=== PATIENT | female | born 1985 | race African-American/Black ===

== ENCOUNTER 2019-12-29 11:15 | Emergency (ER) | payer SELFPAY ==
--- NOTE | 2019-12-29 12:40 | RAD REPORT ---
EXAM DESCRIPTION: RAD - Chest Pa And Lat (2 Views) - 12/29/2019 12:28 pm CLINICAL HISTORY: Cough;Congestion Chest pain. COMPARISON: No comparisons FINDINGS: The lungs are clear. The heart is normal in size. No displaced fractures. IMPRESSION: No acute or concerning finding suspected.
--- NOTE | 2019-12-29 12:53 | EDPHYS ---
Physician Documentation [facility] Name: Shital Woodson Age: 34 yrs Sex: Female : 1985 Arrival Date: 12/29/2019 Time: 11:17 Bed 20 Private MD: ED Physician Jordan Lerner HPI: 12/29 13:24 This 34 yrs old Black Female presents to ER via Ambulatory with complaints of Flu kb Symptoms. 13:24 The patient or guardian reports cough, that is intermittent, described as moderate, kb with no sputum, flu symptoms, low-grade fever, myalgias. Onset: The symptoms/episode began/occurred 3 day(s) ago. Severity of symptoms: At their worst the symptoms were moderate, in the emergency department the symptoms are unchanged. Modifying factors: The symptoms are alleviated by nothing, the symptoms are aggravated by nothing. Associated signs and symptoms: Pertinent positives: rhinorrhea, sore throat. The patient has not experienced similar symptoms in the past. The patient has not recently seen a physician. Pt reports cough, congestion, runny nose, malaise, body aches, fatigue for a few days. 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 - Coronavirus screen:: The patient has NOT traveled to [place] in the past 14 days. The patient has NOT had contact with known/suspected case of Coronavirus? Proceed with normal triage procedures. - Social history:: Smoking status: Patient reports the use of cigarette tobacco products, smokes one-half pack cigarettes per day. - Ebola Screening: : No symptoms or risks identified at this time. ROS: 13:23 Neck: Negative for injury, pain, and swelling, Cardiovascular: Negative for chest pain, kb palpitations, and edema, Abdomen/GI: Negative for abdominal pain, nausea, vomiting, diarrhea, and constipation, Back: Negative for injury and pain, MS/Extremity: Negative for injury and deformity, Skin: Negative for injury, rash, and discoloration, Neuro: Negative for headache, weakness, numbness, tingling, and seizure. 13:23 Constitutional: Positive for body aches, chills, fatigue, fever, malaise, poor PO intake. 13:23 ENT: Positive for rhinorrhea, sinus congestion, sore throat. 13:23 Respiratory: Positive for cough. Exam: 13:22 Constitutional: This is a well developed, well nourished patient who is awake, alert, kb and in no acute distress. Head/Face: Normocephalic, atraumatic. Neck: Trachea midline, no thyromegaly or masses palpated, and no cervical lymphadenopathy. Supple, full range of motion without nuchal rigidity, or vertebral point tenderness. No Meningismus. Chest/axilla: Normal chest wall appearance and motion. Nontender with no deformity. No lesions are appreciated. Cardiovascular: Regular rate and rhythm with a normal S1 and S2. No gallops, murmurs, or rubs. Normal PMI, no JVD. No pulse deficits. Respiratory: Lungs have equal breath sounds bilaterally, clear to auscultation and percussion. No rales, rhonchi or wheezes noted. No increased work of breathing, no retractions or nasal flaring. Abdomen/GI: Soft, non-tender, with normal bowel sounds. No distension or tympany. No guarding or rebound. No evidence of tenderness throughout. Skin: Warm, dry with normal turgor. Normal color with no rashes, no lesions, and no evidence of cellulitis. MS/ Extremity: Pulses equal, no cyanosis. Neurovascular intact. Full, normal range of motion. Neuro: Awake and alert, GCS 15, oriented to person, place, time, and situation. Cranial nerves II-XII grossly intact. Motor strength 5/5 in all extremities. Sensory grossly intact. Cerebellar exam normal. Normal gait. 13:22 ENT: External ear(s): are unremarkable, Ear canal(s): are normal, TM's: fluid levels, on the right, Nose: is normal, Mouth: is normal, Posterior pharynx: is normal. Vital Signs: 11:32 BP 136 / 102; Pulse 92; Resp 18; Temp 97.4; Pulse Ox 100% on R/A; Weight 81.65 kg; hb Height 5 ft. (152.40 cm); Pain 10/10; 11:32 Body Mass Index 35.15 (81.65 kg, 152.40 cm) MDM: 12:05 Patient medically screened. kb 13:23 Data reviewed: vital signs, nurses notes. Data reviewed: lab test result(s), radiologic kb studies. Data interpreted: Pulse oximetry: on room air is 100 %. Interpretation: normal. Counseling: I had a detailed discussion with the patient and/or guardian regarding: the historical points, exam findings, and any diagnostic results supporting the discharge/admit diagnosis, lab results, radiology results, the need for outpatient follow up, a family practitioner, to return to the emergency department if symptoms worsen or persist or if there are any questions or concerns that arise at home. 12/29 11:35 Order name: Flu; Complete Time: 12:05 12/29 11:35 Order name: Strep; Complete Time: 12: 12/29 11:59 Order name: Throat Culture [facility] 12/29 12:05 Order name: Chest Pa And Lat (2 Views) XRAY kb Administered Medications: No medications were administered Disposition: 16:27 Co-signature as Attending Physician, Jordan Lerner MD I agree with the assessment and kdr plan of care. Disposition: 12/29/19 12:51 Discharged to Home. Impression: Acute upper respiratory infection, unspecified. - Condition is Stable. - Discharge Instructions: Upper Respiratory Infection, Adult, [id number], Viral Respiratory Infection, [id number]. - Work release form, Medication Reconciliation Form, Thank You Letter, Antibiotic Education, Prescription Opioid Use form. - Follow up: Emergency Department; When: As needed; Reason: Worsening of condition. Follow up: Private Physician; When: 2 - 3 days; Reason: Recheck today's complaints, Continuance of care, Re-evaluation by your physician. Signatures: Dispatcher [employer] EDWY Itzel Almanza, WORKERS COMPENSATION ATTORNEY-C WORKERS COMPENSATION ATTORNEY-Jordan Camara MD MD [facility] Dianne Greenfield, PUALO RN Ben Gan RN RN jl7 Corrections: (The following items were deleted from the chart) 13:03 12:51 12/29/2019 12:51 Discharged to Home. Impression: Acute upper respiratory jl7 infection, unspecified. Condition is Stable. Forms are Medication Reconciliation Form, Thank You Letter, Antibiotic Education, Prescription Opioid Use. Follow up: Emergency Department; When: As needed; Reason: Worsening of condition. Follow up: Private Physician; When: 2 - 3 days; Reason: Recheck today's complaints, Continuance of care, Re-evaluation by your physician. kb
--- NOTE | 2019-12-29 12:53 | ER ---
Nurse's Notes [facility] Name: Shital Woodson Age: 34 yrs Sex: Female : 1985 Arrival Date: 12/29/2019 Time: 11:17 Bed 20 Private MD: Diagnosis: Acute upper respiratory infection, unspecified Presentation: 12/29 11:30 Presenting complaint: SOB, nonproductive cough, pain with cough, fever, sore throat, hb body aches, and N/V/D x 3 days. Not tolerating fluids. TMAX 101. Transition of care: patient was not received from another setting of care. Onset of symptoms was December 26, 2019. Risk Assessment: Do you want to hurt yourself or someone else? Patient reports no desire to harm self or others. Care prior to arrival: None. 11:30 Method Of Arrival: Ambulatory hb 11:30 Acuity: CATIE 3 hb 13:03 Initial Sepsis Screen: Does the patient meet any 2 criteria? No. Patient's initial jl7 sepsis screen is negative. Does the patient have a suspected source of infection? No. Patient's initial sepsis screen is negative. 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 - Coronavirus screen:: The patient has NOT traveled to [place] in the past 14 days. The patient has NOT had contact with known/suspected case of Coronavirus? Proceed with normal triage procedures. - Social history:: Smoking status: Patient reports the use of cigarette tobacco products, smokes one-half pack cigarettes per day. - Ebola Screening: : No symptoms or risks identified at this time. Screenin:10 Abuse screen: Denies threats or abuse. Denies injuries from another. Nutritional jl7 screening: No deficits noted. Tuberculosis screening: No symptoms or risk factors identified. Fall Risk None identified. Assessment: 12:10 General: Appears in no apparent distress. uncomfortable, well groomed, well developed, jl7 Behavior is calm, cooperative. Pain: Complains of pain in sore throat. Neuro: Level of Consciousness is awake, alert, obeys commands, Oriented to person, place, time, situation. Cardiovascular: Patient's skin is warm and dry. Respiratory: Airway is patent Respiratory effort is even, unlabored, Respiratory pattern is regular, symmetrical. Derm: Skin is pink, warm \T\ dry. Vital Signs: 11:32 BP 136 / 102; Pulse 92; Resp 18; Temp 97.4; Pulse Ox 100% on R/A; Weight 81.65 kg; hb Height 5 ft. (152.40 cm); Pain 10/10; 11:32 Body Mass Index 35.15 (81.65 kg, 152.40 cm) hb ED Course: 11:17 Patient arrived in ED. rg4 11:32 Triage completed. hb 11:32 Arm band placed on. hb 12:00 Flu and/or RSV swab sent to lab. Strep swab sent to lab. jl7 12:04 Itzel Almanza FNP-C is [facility]. kb 12:04 Jordan Lerner MD is Attending Physician. kb 12:10 Patient has correct armband on for positive identification. Bed in low position. Call jl7 light in reach. Side rails up X 1. 12:20 Ben Gan, PAULO is Primary Nurse. jl7 12:27 Chest Pa And Lat (2 Views) XRAY In Process Unspecified. EDMS 13:02 No provider procedures requiring assistance completed. Patient did not have IV access jl7 during this emergency room visit. Administered Medications: No medications were administered Outcome: 12:51 Discharge ordered by MD. kb 13:02 Discharged to home ambulatory. jl7 13:02 Condition: stable 13:02 Discharge instructions given to patient, Instructed on discharge instructions, follow up and referral plans. Demonstrated understanding of instructions, follow-up care. 13:03 Patient left the ED. jl7 Signatures: Dispatcher [employer] EDMS Itzel Almanza FNP-C FNP-Ckb Baxter, Heather, RN RN Diamond Nguyen rg4 Ben Gan, PAULO RN jl7 Corrections: (The following items were deleted from the chart) 11:33 11:32 BP 136 / 102; Pulse 92bpm; Resp 20bpm; Pulse Ox 100% RA; Temp 97.4F; 81.65 kg; hb Height 5 ft.; BMI: 35.1; Pain 10/10; hb
[2019-12-29 13:32] VITALS: BP 136/102; TEMP 97.4; O2SAT 100
== END 2019-12-29 13:03 | disposition home or self-care (01) ==
LOC: ER 11:15
DX: J06.9 Acute upper respiratory infection, unspecified (principal); F17.210 Nicotine dependence, cigarettes, uncomplicated
CPT/HCPCS: 71046; 87070; 87081; 87804; 99283

== ENCOUNTER 2020-05-09 09:11 | Emergency (ER) | payer SELFPAY ==
[2020-05-09] MEDS ORDERED: HYDROCODONE/APAP 5/325 MG TAB ONE (09:29)
--- NOTE | 2020-05-09 10:06 | RAD REPORT ---
EXAM DESCRIPTION: RAD - Ankle Right 3 View - 05/09/2020 9:43 am COMPARISON: None. FINDINGS: No fracture, dislocation or periosteal reaction. No joint effusion seen. No joint space na rrowing. Minimal plantar spur present. Lateral soft tissue swelling is present. IMPRESSION: Soft tissue swelling with no right ankle fracture.
--- NOTE | 2020-05-09 10:06 | RAD REPORT ---
EXAM DESCRIPTION: RAD - Foot Right 3 View - 05/09/2020 9:43 am CLINICAL HISTORY: PAIN, twisting injury, foot and ankle pain COMPARISON: <Comparisons>None. FINDINGS: No fracture, dislocation or periosteal reaction. No acute bone or joint finding identified . Lateral soft tissue swelling is present. No air or foreign body in the soft tissues. IMPRESSION: Lateral soft tissue swelling. No foot fracture identifiable.
--- NOTE | 2020-05-09 10:58 | ER ---
Nurse's Notes [facility] Name: Shital Woodson Age: 35 yrs Sex: Female : 1985 Arrival Date: 05/09/2020 Time: 09:11 Bed 8 Private MD: Diagnosis: Sprain of unspecified ligament of right ankle Presentation: 05/09 09:12 Chief complaint: Patient states: pt tripped while walking and twisted right ankle. Pain dm5 rated at 10/10 at this time. No deformity noted. Coronavirus screen: Proceed with normal triage. Patient denies a cough. Patient denies shortness of breath or difficulty breathing. Patient denies measured and/or subjective temperature greater than 100.4F prior to today's visit. Patient reports travel on a cruise ship or to a country the [facility] currently lists as an affected area. Patient denies contact with known and/or suspected case of COVID-19. Ebola Screen: Patient negative for fever greater than or equal to 101.5 degrees Fahrenheit, and additional compatible Ebola Virus Disease symptoms Patient denies exposure to infectious person. Patient denies travel to an Ebola-affected area in the 21 days before illness onset. No symptoms or risks identified at this time. Initial Sepsis Screen: Does the patient meet any 2 criteria? No. Patient's initial sepsis screen is negative. Does the patient have a suspected source of infection? No. Patient's initial sepsis screen is negative. Risk Assessment: Do you want to hurt yourself or someone else? Patient reports no desire to harm self or others. Onset of symptoms was May 09, 2020. 09:12 Method Of Arrival: EMS: [facility] dm5 09:12 Acuity: CATIE 4 dm5 Triage Assessment: 09:16 General: Appears uncomfortable, Behavior is calm, cooperative. Pain: Complains of pain dm5 in right ankle and lateral aspect of right foot Pain currently is 10 out of 10 on a pain scale. Neuro: Level of Consciousness is awake, alert, obeys commands, Oriented to person, place, time. Respiratory: Airway is patent Respiratory effort is even, unlabored, relaxed, Respiratory pattern is regular, symmetrical. Musculoskeletal: Swelling present in right ankle. Historical: - Allergies: 09:16 No Known Allergies; dm5 - Home Meds: 09:16 None [Active]; dm5 - PMHx: 09:16 None; dm5 - PSHx: 09:16 None; dm5 - Immunization history:: Adult Immunizations not up to date. - Family history:: not pertinent. - Hospitalizations: : No recent hospitalization is reported. Vital Signs: 09:12 BP 115 / 99; Pulse 84; Resp 18; Temp 98.5; Pulse Ox 100% on R/A; Weight 90.72 kg; dm5 Height 5 ft. 0 in. (152.40 cm); Pain 10; 09:12 Body Mass Index 39.06 (90.72 kg, 152.40 cm) dm5 ED Course: 09:11 Patient arrived in ED. dm5 09:11 Morales Mendez MD is Attending Physician. ma2 09:16 Triage completed. dm5 09:16 Arm band placed on right wrist. Patient placed in an exam room, on a stretcher. dm5 09:17 Brittny Murray, RN is Primary Nurse. dm5 09:48 Ankle Right 3 View XRAY In Process Unspecified. EDMS 09:48 Foot Right 3 View XRAY In Process Unspecified. EDMS Administered Medications: 09:20 Drug: [place] 5 mg-325 mg 1 tabs {Note: RASS restless 1.} Route: PO; dm5 Outcome: 10:58 Discharge ordered by . ma2 11:28 Patient left the ED. sv Signatures: Dispatcher [employer] EDMS Brittny Murray, PAULO BATES Queta Rapp RN RN Morales Mendez MD MD ma2
--- NOTE | 2020-05-09 10:58 | EDPHYS ---
Physician Documentation [facility] Name: Shital Woodson Age: 35 yrs Sex: Female : 1985 Arrival Date: 05/09/2020 Time: 09:11 Bed 8 Private MD: ED Physician Morales Mendez HPI: 05/09 10:56 This 35 yrs old Black Female presents to ER via EMS with complaints of Ankle Injury. ma2 10:56 The patient presents with decreased range of motion, pain. The complaints affect the ma2 right ankle. Onset: The symptoms/episode began/occurred suddenly, 1 hour(s) ago. Associated signs and symptoms: Pertinent negatives: nausea, rash, tingling, vomiting. Severity of symptoms: At their worst the symptoms were moderate, in the emergency department the symptoms are unchanged. The patient has not experienced similar symptoms in the past. Historical: - Allergies: 09:16 No Known Allergies; dm5 - Home Meds: 09:16 None [Active]; dm5 - PMHx: 09:16 None; dm5 - PSHx: 09:16 None; dm5 - Immunization history:: Adult Immunizations not up to date. - Family history:: not pertinent. - Hospitalizations: : No recent hospitalization is reported. ROS: 10:56 Constitutional: Negative for fever, chills, and weight loss. ma2 10:56 All other systems are negative. Exam: 10:56 Constitutional: This is a well developed, well nourished patient who is awake, alert, ma2 and in no acute distress. Chest/axilla: Normal chest wall appearance and motion. Nontender with no deformity. No lesions are appreciated. Cardiovascular: Regular rate and rhythm with a normal S1 and S2. No gallops, murmurs, or rubs. Normal PMI, no JVD. No pulse deficits. Respiratory: Lungs have equal breath sounds bilaterally, clear to auscultation and percussion. No rales, rhonchi or wheezes noted. No increased work of breathing, no retractions or nasal flaring. Abdomen/GI: Soft, non-tender, with normal bowel sounds. No distension or tympany. No guarding or rebound. No evidence of tenderness throughout. Skin: Warm, dry with normal turgor. Normal color with no rashes, no lesions, and no evidence of cellulitis. MS/ Extremity: pain and tenderness over right lateral ankle over deltoid ligament, no hematoma or echymosis, Pulses equal, no cyanosis. Neurovascular intact. Full, normal range of motion. Neuro: Awake and alert, GCS 15, oriented to person, place, time, and situation. Cranial nerves II-XII grossly intact. Motor strength 5/5 in all extremities. Sensory grossly intact. Cerebellar exam normal. Normal gait. Vital Signs: 09:12 BP 115 / 99; Pulse 84; Resp 18; Temp 98.5; Pulse Ox 100% on R/A; Weight 90.72 kg; dm5 Height 5 ft. 0 in. (152.40 cm); Pain 08/14; 09:12 Body Mass Index 39.06 (90.72 kg, 152.40 cm) dm5 MDM: 09:11 Patient medically screened. [facility] 10:56 Differential diagnosis: fracture, sprain, arthritis, gout. Data reviewed: vital signs, mn2 nurses notes. Counseling: I had a detailed discussion with the patient and/or guardian regarding: the historical points, exam findings, and any diagnostic results supporting the discharge/admit diagnosis, the presence of at least one elevated blood pressure reading (>120/80) during this emergency department visit, the need for outpatient follow up. Response to treatment: the patient's symptoms have markedly improved after treatment. 05/09 09:12 Order name: Ankle Right 3 View XRAY; Complete Time: 10:55 [facility] 05/09 09:12 Order name: Foot Right 3 View XRAY; Complete Time: 10:55 [facility] 05/09 10:59 Order name: Crutches [facility] 05/09 10:59 Order name: Post-op Orthopedic Shoe: boot mn2 Administered Medications: 09:20 Drug: [place] 5 mg-325 mg 1 tabs {Note: RASS restless 1.} Route: PO; dm5 Disposition: 05/09/20 10:58 Discharged to Home. Impression: Sprain of unspecified ligament of right ankle. - Condition is Stable. - Discharge Instructions: Ankle Sprain, [id number]. - Prescriptions for Diclofenac Sodium 75 mg Oral Tablet Sustained Release - take 1 tablet by ORAL route 2 times per day; 30 tablet. - Medication Reconciliation Form, Thank You Letter, Antibiotic Education, Prescription Opioid Use form. - Follow up: Private Physician; When: Tomorrow; Reason: Continuance of care. Signatures: Dispatcher [employer] Brittny Rodrigues RN RN Queta Doyle RN RN sv Alzahri, Mohammad, MD MD ma2 Corrections: (The following items were deleted from the chart) 11:28 10:58 05/09/2020 10:58 Discharged to Home. Impression: Sprain of unspecified ligament sv of right ankle. Condition is Stable. Forms are Medication Reconciliation Form, Thank You Letter, Antibiotic Education, Prescription Opioid Use. Follow up: Private Physician; When: Tomorrow; Reason: Continuance of care. ma2
[2020-05-09 11:55] VITALS: BP 115/99; TEMP 98.5; O2SAT 100
== END 2020-05-09 11:28 | disposition home or self-care (01) ==
LOC: ER 09:11
DX: S93.401A Sprain of unspecified ligament of right ankle, initial encounter (principal)
CPT/HCPCS: 99283

== ENCOUNTER 2020-07-17 18:21 | Emergency (ER) | payer SELFPAY ==
[2020-07-17 19:11] LABS: Absolute Lymphocytes (CBC) 1.7 K/uL (0.7-4.9); Basophils % 0.6 % (0-1.3); Hematocrit 36.6 % (36.0-45.0); Lymphocytes % 19.9 % (15.3-44.8); RBC Red Blood Cell Count 5.55 M/uL (3.86-4.86)
[2020-07-17 19:27] LABS: ALT/SGPT 18 U/L (12-78); AST/SGOT 14 U/L (15-37); Albumin 4.4 g/dL (3.4-5.0); Alkaline Phosphatase 87 U/L (45-117); BUN Blood Urea Nitrogen 8 mg/dL (7-18); Bicarbonate 25 mmol/L (21-32); Bilirubin Direct 0.1 mg/dL (0-0.2); Bilirubin Total 0.4 mg/dL (0.2-1.0); Glucose Level 86 mg/dL (74-106); Potassium 3.8 mmol/L (3.5-5.1); Protein, Total 8.4 g/dL (6.4-8.2); Sodium Level 141 mmol/L (136-145)
[2020-07-17 19:46] LABS: Platelet Estimate ADEQ; White Blood Cell Scan OK (OK)
[2020-07-17 19:47] LABS: Blood Morphology Comment NOTED (NOT SEEN); Hypochromasia 1+
[2020-07-17 20:21] LABS: Urine Blood NEGATIVE (NEG); Urine Glucose NEGATIVE (NEG); Urine Protein TRACE (NEG); Urine Specific Gravity >1.030 (1.005-1.030); Urine pH 5.5 (5.0-7.0)
[2020-07-17 20:50] LABS: Barbiturates NEGATIVE (NEGATIVE); Benzodiazepines NEGATIVE (NEGATIVE); Cocaine NEGATIVE (NEGATIVE); METHAMPHETAM NEGATIVE (NEGATIVE); Methadone NEGATIVE (NEGATIVE); Opiates NEGATIVE (NEGATIVE); Phencyclidine NEGATIVE (NEGATIVE); THC Cannibis POSITIVE (NEGATIVE)
--- NOTE | 2020-07-17 23:45 | EDPHYS ---
Physician Documentation [facility] Name: Shital Woodson Age: 35 yrs Sex: Female : 1985 Arrival Date: 07/17/2020 Time: 18:25 Bed 15 Private MD: ED Physician Minor Lerma HPI: 07/17 21:26 This 35 yrs old Black Female presents to ER via EMS with complaints of Psych Problem. kb 21:26 The patient presents to the emergency department with homicidal ideation, the patient kb has harmed or wants to harm a friend. Onset: The symptoms/episode began/occurred 3 day(s) ago. Past psychiatric history: Prior diagnosis: bipolar disorder. Associated signs and symptoms: Pertinent positives; homicidal ideation, Pertinent negatives: suicide ideation. Severity of symptoms: At their worst the symptoms were moderate in the emergency department the symptoms are unchanged. The patient has experienced similar episodes in the past. The patient has not recently seen a physician. Pt reports she has an addiction and needs help. States she is addicted to causing pain to others and she doesn't want to live that life anymore. States she wants to harm one friend in particular so "she can feel the pain that I feel." Pt states the symptoms have been bad for the past 3 days and that she has reached out to [facility], but the appt they gave her was in September and she is worried about what will happen from now until then. Pt states "Sometimes I wish I could just go [place] to the [place], it was so much easier in there." Pt will be a voluntary commitment. . TRIAL CONSULTANT: 21:00 LMP 07/02/2020 ll2 Historical: - Allergies: 18:31 No Known Allergies; ll2 - PMHx: 18:31 ptsd; Bipolar disorder; ll2 - Immunization history:: Adult Immunizations up to date. - Social history:: Smoking status: Patient reports the use of cigarette tobacco products, denies chronic smoking, but will smoke occasionally. ROS: 21:24 Constitutional: Negative for fever, chills, and weight loss, Cardiovascular: Negative kb for chest pain, palpitations, and edema, Respiratory: Negative for shortness of breath, cough, wheezing, and pleuritic chest pain, Abdomen/GI: Negative for abdominal pain, nausea, vomiting, diarrhea, and constipation, Back: Negative for injury and pain, MS/Extremity: Negative for injury and deformity, Skin: Negative for injury, rash, and discoloration, Neuro: Negative for headache, weakness, numbness, tingling, and seizure. 21:24 Psych: Positive for anxiety, homicidal ideation. Exam: 21:24 Constitutional: This is a well developed, well nourished patient who is awake, alert, kb and in no acute distress. Head/Face: Normocephalic, atraumatic. Chest/axilla: Normal chest wall appearance and motion. Nontender with no deformity. No lesions are appreciated. Cardiovascular: Regular rate and rhythm with a normal S1 and S2. No gallops, murmurs, or rubs. Normal PMI, no JVD. No pulse deficits. Respiratory: Lungs have equal breath sounds bilaterally, clear to auscultation and percussion. No rales, rhonchi or wheezes noted. No increased work of breathing, no retractions or nasal flaring. Abdomen/GI: Soft, non-tender, with normal bowel sounds. No distension or tympany. No guarding or rebound. No evidence of tenderness throughout. Back: No spinal tenderness. No costovertebral tenderness. Full range of motion. Skin: Warm, dry with normal turgor. Normal color with no rashes, no lesions, and no evidence of cellulitis. MS/ Extremity: Pulses equal, no cyanosis. Neurovascular intact. Full, normal range of motion. Neuro: Awake and alert, GCS 15, oriented to person, place, time, and situation. Cranial nerves II-XII grossly intact. Motor strength 5/5 in all extremities. Sensory grossly intact. Cerebellar exam normal. Normal gait. 21:24 Psych: Behavior/mood is cooperative, angry, Affect is animated, Oriented to person, place, time, Patient having thoughts of homicide. Homicidal thoughts directed towards one person in particular Judgement / Insight is normal. Memory is normal. Delusions/hallucinations are not present. Vital Signs: 19:03 BP 117 / 97; Pulse 77; Resp 16; Temp 98.7; Pulse Ox 100% on R/A; Weight 81.65 kg; ll2 Height 5 ft. (152.40 cm); 20:03 BP 129 / 84; Pulse 66; Resp 15; Pulse Ox 100% on R/A; ll2 21:02 BP 128 / 73; Pulse 73; Resp 14; Pulse Ox 100% on R/A; ll2 21:47 BP 129 / 85; Pulse 78; Resp 14; Pulse Ox 100% on R/A; ll2 19:03 Body Mass Index 35.15 (81.65 kg, 152.40 cm) ll2 MDM: 18:27 Patient medically screened. 21:23 Data reviewed: vital signs, nurses notes. Data interpreted: Pulse oximetry: on room air kb is 100 %. Interpretation: normal. Counseling: I had a detailed discussion with the patient and/or guardian regarding: the historical points, exam findings, and any diagnostic results supporting the discharge/admit diagnosis, lab results, the need to transfer to another facility, [facility] does not immediately have the required specialist. 21:44 ED course: Pt medically cleared. [facility] contacted for consult and transfer to inpatient psychiatric facilities initiated. 23:36 ED course: Pt decided she wants to leave. Educated that she could not leave because she kb could be a danger to others. Pt states she is 35 years old/grown and we can't force her to stay. Pt educated that we would have to call PD if she tried to leave. Pt states "they can't do anything to me either, I don't have a warrant." Pt informed that I was going to call the mental health deputy to get an emergency fci order. I asked solid waste landfill technician to remove IV so she didn't leave with it in. Tech came out of the room saying pt refused to let him remove the IV. Pt was walking behind him and left the ER. [facility] and [place] [facility] called. Pt has not been able to be located by either service. I spoke with [place] officer and he will make a visit to pt's address to see if she went there. . 07/17 18:40 Order name: Acetaminophen; Complete Time: 19:35 kb 07/17 18:40 Order name: Basic Metabolic Panel; Complete Time: 19:35 kb 07/17 18:40 Order name: CBC with Diff; Complete Time: 19:48 kb 07/17 18:40 Order name: ETOH Level; Complete Time: 19:35 kb 07/17 18:40 Order name: Hepatic Function; Complete Time: 19:35 kb 07/17 18:40 Order name: PT-INR; Complete Time: 19:23 kb 07/17 18:40 Order name: Ptt, Activated; Complete Time: 19:23 kb 07/17 18:40 Order name: Salicylate; Complete Time: 19:41 kb 07/17 18:40 Order name: Urine Drug Screen; Complete Time: 21:23 kb 07/17 19:24 Order name: CBC Smear Scan; Complete Time: 19:48 EDMS 07/17 20:07 Order name: Urine --Ancillary (enter results); Complete Time: 20:26 tt3 07/17 20:07 Order name: Urine Dipstick--Ancillary (enter results); Complete Time: 20:26 tt3 07/17 18:40 Order name: EKG - Nurse/Tech; Complete Time: 19:03 kb 07/17 18:40 Order name: IV Saline Lock; Complete Time: 19:03 kb 07/17 18:40 Order name: Labs collected and sent; Complete Time: 19:03 kb 07/17 18:40 Order name: Urine Dipstick-Ancillary (obtain specimen); Complete Time: 19:03 kb Administered Medications: No medications were administered Disposition: 07/17/20 23:44 Patient left the facility after being seen by provider. Preliminary diagnosis is Homicidal ideations. - Patient left due to other. - Condition is Stable. Addendum: 07/19/2020 10:53 Co-signature as Attending Physician, Minor Lerma MD I agree with the assessment and c gates plan of care. Signatures: Dispatcher [employer] EDOH Itzel Almanza, RN ORTHO-C RN ORTHO-CkBecky Tariq RN RN aj1 Minor Lerma MD MD cha Linscombe, Lacie, RN RN ll2 Corrections: (The following items were deleted from the chart) 07/18 00:00 07/17 23:44 07/17/2020 23:44 Patient left the facility after being seen by provider. aj1 Preliminary diagnosis is Homicidal ideations. Reason stated they are leaving due to other. Condition is Stable. kb
--- NOTE | 2020-07-17 23:45 | ER ---
Nurse's Notes [facility] Name: Shital Woodson Age: 35 yrs Sex: Female : 1985 Arrival Date: 07/17/2020 Time: 18:25 Bed 15 Private MD: Diagnosis: Homicidal ideations Presentation: 07/17 18:26 Chief complaint: EMS states: Pt was homicidal, but not suicidal, she does do things to ll2 inflict pain on herself in order to ease her emotional pain, she has a few superficial lacerations to her right forearm. States, she knows she needs help, was unsure where to get it so asked to be brought here instead. Has been off her meds for 7 months and has a HX of bipolar disorder and ptsd. Coronavirus screen: Client denies travel out of the [place] in the last 14 days. At this time, the client does not indicate any symptoms associated with coronavirus-19. Ebola Screen: No symptoms or risks identified at this time. Initial Sepsis Screen: Does the patient meet any 2 criteria? No. Patient's initial sepsis screen is negative. Does the patient have a suspected source of infection? No. Patient's initial sepsis screen is negative. Risk Assessment: Do you want to hurt yourself or someone else? Other: states she has had these ideas but removed herself from the situation and no longer feels that way. she is seeking help finding the proper care and management of her disorder. Onset of symptoms is unknown. 18:26 Method Of Arrival: EMS: [facility] ll2 18:26 Acuity: CATIE 2 ll2 Triage Assessment: 18:31 General: Appears distressed, Behavior is cooperative, anxious, crying. Pain: Denies ll2 pain. MILLER ROD MILL: 21:00 LMP 07/02/2020 ll2 Historical: - Allergies: 18:31 No Known Allergies; ll2 - PMHx: 18:31 ptsd; Bipolar disorder; ll2 - Immunization history:: Adult Immunizations up to date. - Social history:: Smoking status: Patient reports the use of cigarette tobacco products, denies chronic smoking, but will smoke occasionally. Screenin:32 Abuse screen: Denies threats or abuse. Nutritional screening: No deficits noted. ll2 Tuberculosis screening: No symptoms or risk factors identified. Fall Risk None identified. Assessment: 18:32 Reassessment: see triage assessment. ll2 20:06 General: denies thoughts to harm self or others at this time. pt appears calm and ll2 resting in bed. . 20:22 Reassessment: No changes from previously documented assessment. Patient and/or family ll2 updated on plan of care and expected duration. Pain level reassessed. Patient is alert, oriented x 3, equal unlabored respirations, skin warm/dry/pink. pt is calm, but appears sad. no thoughts od SI at this time. 21:30 Reassessment: ERP to bedside discussing plans to transfer. ll2 22:14 Reassessment: Patient and/or family updated on plan of care and expected duration. Pain aj1 level reassessed. General: Appears in no apparent distress. comfortable, Behavior is calm, cooperative, appropriate for age. Pain: Denies pain. Neuro: Level of Consciousness is awake, alert, obeys commands, Oriented to person, place, time, situation. Cardiovascular: Patient's skin is warm and dry. Respiratory: Airway is patent Respiratory effort is even, unlabored, Respiratory pattern is regular, symmetrical. GI: No signs and/or symptoms were reported involving the gastrointestinal system. : No signs and/or symptoms were reported regarding the genitourinary system. EENT: No signs and/or symptoms were reported regarding the EENT system. Derm: No signs and/or symptoms reported regarding the dermatologic system. Skin is pink, warm \\T\\ dry. normal. Musculoskeletal: No signs and/or symptoms reported regarding the musculoskeletal system. Circulation, motion, and sensation intact. 23:06 Reassessment: Patient states that she would like to leave, notified Brandy Almanza NP who aj1 states she will come and speak with the patient. 23:20 Reassessment: Patient appears agitated and begins walking out of ER. Patient is aj1 approached by staff who remind patient that she cannot leave, patient begins cursing states "Fuck that! Y'all don't want this fire! Don't try me!" Patient exits to the lobby, security notified. 23:22 Reassessment: pt ambulatory out of the ED at this time, IV intact, pt refused for staff sg to safely remove the IV, [place] PD contacted for assistance with homicidal pt leaving the ED. Psych: 20:57 Subjective: Patient's mood is sad, Delusions are denied, Hallucinations are denied ll2 Having thoughts of pt denies having thoughts of SI or HI. Objective: Patient is cooperative, Speech is normal, Affect is appropriate, Patient has mutilated themselves by pt came in through ems with four minor scrapoes on her lt forearm. Interventions: Urine collected and sent for urine drug test. Patient reassessed during use of restraints. Patient is physically safe. Safety Checks: Pt denies substance abuse. Commitment: Patient will be a voluntary commitment. Vital Signs: 19:03 BP 117 / 97; Pulse 77; Resp 16; Temp 98.7; Pulse Ox 100% on R/A; Weight 81.65 kg; ll2 Height 5 ft. (152.40 cm); 20:03 BP 129 / 84; Pulse 66; Resp 15; Pulse Ox 100% on R/A; ll2 21:02 BP 128 / 73; Pulse 73; Resp 14; Pulse Ox 100% on R/A; ll2 21:47 BP 129 / 85; Pulse 78; Resp 14; Pulse Ox 100% on R/A; ll2 19:03 Body Mass Index 35.15 (81.65 kg, 152.40 cm) ll2 ED Course: 18:25 Patient arrived in ED. ll2 18:25 Nimisha Macedo RN is Primary Nurse. ll2 18:27 It[facility]C [facility] kb 18:27 Minor Lerma MD is Attending Physician. kb 18:31 Triage completed. ll2 18:32 Patient has correct armband on for positive identification. Bed in low position. Call ll2 light in reach. Side rails up X 1. 18:32 No provider procedures requiring assistance completed. ll2 20:06 Initial lab(s) drawn, by me, Urine collected: clean catch specimen, clear. ll2 21:32 Contacted [facility] to have a screener speak to the patient. Spoke with Brittany. tt3 21:35 Faxed patient chart to [facility], [facility], [facility], [facility], [facility], [facility], [facility], [facility], [facility], [facility] and [facility]. 22:14 Report received from PAULO Bansal. aj1 22:20 Lin with [facility] called to screen the patient. tt3 23:17 Lin from [facility] faxed over the recommendations. tt3 23:35 Called Mental Health to get an HAYES for the patient. [place] PD was called also. tt3 Was told the Mental health deputy would call back that they were on another call at the time. Administered Medications: No medications were administered Outcome: 07/18 00:00 Eloped from patient exam room. aj1 00:00 Patient left the ED. aj1 Signatures: Itzel Almanza, PATTERN ILLUSTRATOR-C DAWOOD-Becky Willis RN RN aj1 Alexander Gibson RN RN sg Linscombe, Lacie, RN RN ll2 Migue Pedersen tt3 Corrections: (The following items were deleted from the chart) 07/17 23:46 23:35 Called Mental Health to get an HAYES for the patient. [place] PD was called tt3 also. tt3 23:58 23:22 Reassessment: pt ambulatory out of the ED at this time, IV intact, pt refused for sg staff to safely remove the IV, [place] [employer] contacted for assistance with SI/HI pt leaving the ED sg
[2020-07-18 00:37] VITALS: TEMP 98.7; O2SAT 100
[2020-07-18 00:40] VITALS: BP 129/85
== END 2020-07-18 | disposition left against medical advice (07) ==
LOC: ER 18:21
DX: R45.850 Homicidal ideations (principal); F31.9 Bipolar disorder, unspecified; F17.210 Nicotine dependence, cigarettes, uncomplicated
CPT/HCPCS: 36415; 80048; 80076; 80307; 80320; 80329; 81003; 81025; 85025; 85610; 85730; 99284

== ENCOUNTER 2020-08-26 07:01 | Emergency (ER) | payer SELFPAY ==
[2020-08-26] MEDS ORDERED: METHYLPREDNISOLONE 125 MG INJ ONE (07:36)
[2020-08-26] MEDS ORDERED: KETOROLAC 30 MG/ML INJ ONE (07:36)
[2020-08-26] MEDS ORDERED: MORPHINE 4 MG/ML SYR ONE (07:36)
[2020-08-26] MEDS ORDERED: METHOCARBAMOL 1,000 MG/10 ML VIAL IV ONE (07:36)
[2020-08-26] MEDS ORDERED: NA CHLORIDE 0.9% 100 ML IV ONE (07:36)
--- NOTE | 2020-08-26 08:50 | EDPHYS ---
[facility] Name: Shital Woodson Age: 35 yrs Sex: Female : 1985 Arrival Date: 08/26/2020 Time: 07:03 Bed 5 Private MD: ED Physician Jordan Lerner HPI: 08/26 07:31 This 35 yrs old Black Female presents to ER via Ambulatory with complaints of Back Pain.kdr 07:31 The patient presents with pain that is acute. The symptoms are located in the low back, kdr right sciatic area/buttock. Onset: The symptoms/episode began/occurred suddenly, yesterday. The pain radiates to the right low back, to the right gluteus elaine. 07:31 Associated signs and symptoms: The patient has no apparent associated signs or kdr symptoms, Pertinent negatives: constipation, dysuria, hematuria, incontinence, urinary retention, vomiting, weakness. The problem was sustained This is chronic pain and was exacerbated when she got off the couch yesterday. Modifying factors: The patient symptoms are alleviated by nothing, the patient symptoms are aggravated by any movement, standing, walking. Severity of symptoms: At their worst the symptoms were moderate, severe, in the emergency department the symptoms are unchanged. The patient has experienced similar episodes in the past, chronically. The patient has not recently seen a physician. SOCIAL MEDIA COORDINATOR: 07:05 LMP 08/17/2020 aa5 Historical: - Allergies: 07:05 No Known Allergies; aa5 - PMHx: 07:05 Bipolar disorder; PTSD; Back pain; aa5 - PSHx: 07:05 None; aa5 - Immunization history:: Adult Immunizations unknown. - Social history:: Smoking status: Patient reports the use of cigarette tobacco products, smokes one-half pack cigarettes per day. ROS: 07:31 Constitutional: Negative for fever, chills, and weight loss, Eyes: Negative for injury, kdr pain, redness, and discharge, Neck: Negative for injury, pain, and swelling, Cardiovascular: Negative for chest pain, palpitations, and edema, Respiratory: Negative for shortness of breath, cough, wheezing, and pleuritic chest pain, Abdomen/GI: Negative for abdominal pain, nausea, vomiting, diarrhea, and constipation, : Negative for injury, bleeding, discharge, and swelling, MS/Extremity: Negative for injury and deformity, Skin: Negative for injury, rash, and discoloration, Neuro: Negative for headache, weakness, numbness, tingling, and seizure activity. Psych: Negative for depression, anxiety, suicide ideation, homicidal ideation, and hallucinations, Allergy/Immunology: Negative for hives, rash, and allergies, Endocrine: Negative for neck swelling, polydipsia, polyuria, polyphagia, and marked weight changes, Hematologic/Lymphatic: Negative for swollen nodes, abnormal bleeding, and unusual bruising. 07:31 Back: Positive for pain at rest, pain with movement, radiated pain. Exam: 07:31 Constitutional: This is a well developed, well nourished patient who is awake, alert, kdr and in no acute distress. Head/Face: Normocephalic, atraumatic. Chest/axilla: Normal chest wall appearance and motion. Nontender with no deformity. No lesions are appreciated. Respiratory: Lungs have equal breath sounds bilaterally, clear to auscultation and percussion. No rales, rhonchi or wheezes noted. No increased work of breathing, no retractions or nasal flaring. 07:31 Back: pain, that is moderate, that is severe, of the right low back, ROM is painful, normal spinal alignment noted, CVA tenderness, is absent. Vital Signs: 07:08 Weight 86.18 kg (R); Height 5 ft. 0 in. (152.40 cm) (R); Pain 10/10; aa5 07:10 BP 96 / 58; Pulse 74; Resp 15; Temp 97.9; Pulse Ox 100% ; Pain 10/10; jl7 08:45 BP 117 / 62; Pulse 67; Resp 17; Pulse Ox 100% ; jl7 07:08 Body Mass Index 37.11 (86.18 kg, 152.40 cm) aa5 MDM: 07:31 Data reviewed: vital signs, nurses notes. Counseling: I had a detailed discussion with kdr the patient and/or guardian regarding: the historical points, exam findings, and any diagnostic results supporting the discharge/admit diagnosis, the need for outpatient follow up. 08:50 Patient medically screened. kdr 08/26 07:44 Order name: IV Start; Complete Time: :44 [facility] Administered Medications: 07:30 Drug: TORadol - Ketorolac 15 mg Route: IVP; Site: right antecubital; jl7 08:00 Follow up: Response: No adverse reaction; Pain is decreased jl7 07:32 Drug: SOLU-Medrol 125 mg Route: IVP; Site: right antecubital; jl7 08:40 Follow up: Response: No adverse reaction jl7 07:35 Drug: morphine 4 mg Route: IVP; Site: right antecubital; jl7 08:00 Follow up: Response: No adverse reaction; Pain is decreased jl7 07:38 Drug: Robaxin 1 grams Route: IVPB; Infused Over: 1 hrs; Site: right antecubital; jl7 08:08 Follow up: Response: No adverse reaction; IV Status: Completed infusion jl7 Disposition: 08/26/20 08:50 Discharged to Home. Impression: Sciatica, right side, Low back pain. - Condition is Stable. - Discharge Instructions: Back Pain, Adult, [id number], Sciatica, [id number]. - Prescriptions for ketorolac 10 mg Oral tablet - take 1 tablet by ORAL route every 4-6 hours not to exceed 40 mg in 24hrs; 15 tablet. Tramadol 50 mg Oral Tablet - take 1 tablet by ORAL route every 8 hours as needed; 12 tablet. Medrol (Rodrigue) 4 mg Oral Tablets, Dose Pack - take 1 tablet by ORAL route as directed - follow package instructions; 1 packet. - Medication Reconciliation Form, Thank You Letter, Prescription Opioid Use form. - Follow up: Private Physician; When: 2 - 3 days; Reason: If symptoms return, Further diagnostic work-up, Recheck today's complaints, Continuance of care, Re-evaluation by your physician. - Problem is new. - Symptoms have improved. Signatures: Jordan Lerner MD MD kdr Calderon, Audri RN RN aa5 Ben Gan RN RN jl7 Corrections: (The following items were deleted from the chart) 08:59 08:50 08/26/2020 08:50 Discharged to Home. Impression: Sciatica, right side; Low back jl7 pain. Condition is Stable. Forms are Medication Reconciliation Form, Thank You Letter, Antibiotic Education, Prescription Opioid Use. Follow up: Private Physician; When: 2 - 3 days; Reason: If symptoms return, Further diagnostic work-up, Recheck today's complaints, Continuance of care, Re-evaluation by your physician. Problem is new. Symptoms have improved. kdr
--- NOTE | 2020-08-26 08:50 | ER ---
Nurse's Notes [facility] Name: Shital Woodson Age: 35 yrs Sex: Female : 1985 Arrival Date: 08/26/2020 Time: 07:03 Bed 5 Private MD: Diagnosis: Sciatica, right side;Low back pain Presentation: 08/26 07:05 Chief complaint: Patient states: chronic low back pain x 6-7 years ago, pt reports pain aa5 got worse yesterday, pt states "I just went to stand up and my back went out on me". 07:05 Risk Assessment: Do you want to hurt yourself or someone else? Patient reports no aa5 desire to harm self or others. Onset of symptoms was August 2020. 07:05 Acuity: CATIE 3 aa5 07:05 Method Of Arrival: Ambulatory aa5 07:43 Coronavirus screen: Client denies travel out of the [place] in the last 14 days. At this jl7 time, the client does not indicate any symptoms associated with coronavirus-19. Ebola Screen: No symptoms or risks identified at this time. Initial Sepsis Screen: Does the patient meet any 2 criteria? No. Patient's initial sepsis screen is negative. Does the patient have a suspected source of infection? No. Patient's initial sepsis screen is negative. Care prior to arrival: None. Transition of care: patient was not received from another setting of care. 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 - Social history:: Smoking status: Patient reports the use of cigarette tobacco products, smokes one-half pack cigarettes per day. Screenin:40 Abuse screen: Denies threats or abuse. Denies injuries from another. Nutritional jl7 screening: No deficits noted. Tuberculosis screening: No symptoms or risk factors identified. Fall Risk IV access (20 points). Total Auguste Fall Scale indicates No Risk (0-24 pts). Assessment: 07:10 General: Appears in no apparent distress. uncomfortable, Behavior is cooperative, jl7 appropriate for age, crying. Pain: Complains of pain in lumbar area Pain radiates to right gluteus elaine Pain currently is 10 out of 10 on a pain scale. Quality of pain is described as sharp, Pain began years ago. Is continuous. Neuro: Level of Consciousness is awake, alert, obeys commands, Oriented to person, place, time, situation. Cardiovascular: Patient's skin is warm and dry. Respiratory: Airway is patent Respiratory effort is even, unlabored, Respiratory pattern is regular, symmetrical. Derm: Skin is pink, warm \\T\\ dry. Musculoskeletal: Reports pain in back. 08:39 Reassessment: Patient appears in no apparent distress at this time. Patient and/or jl7 family updated on plan of care and expected duration. Pain level reassessed. Patient is alert, oriented x 3, equal unlabored respirations, skin warm/dry/pink. Pt reports pain is a little better upon ambulating to the bathroom. Vital Signs: 07:08 Weight 86.18 kg (R); Height 5 ft. 0 in. (152.40 cm) (R); Pain 10/10; aa5 07:10 BP 96 / 58; Pulse 74; Resp 15; Temp 97.9; Pulse Ox 100% ; Pain 10/10; jl7 08:45 BP 117 / 62; Pulse 67; Resp 17; Pulse Ox 100% ; jl7 07:08 Body Mass Index 37.11 (86.18 kg, 152.40 cm) aa5 ED Course: 07:03 Patient arrived in ED. as 07:05 Arm band placed on Patient placed in an exam room, on a stretcher. aa5 07:09 Ben Gan RN is Primary Nurse. jl7 07:09 Jordan Lerner MD is Attending Physician. kdr 07:12 Triage completed. aa5 07:30 Inserted saline lock: 20 gauge in right antecubital area, using aseptic technique. jl7 07:40 Patient has correct armband on for positive identification. Bed in low position. Call jl7 light in reach. Side rails up X 1. Pulse ox on. NIBP on. Warm blanket given. 08:58 No provider procedures requiring assistance completed. IV discontinued, intact, jl7 bleeding controlled, No redness/swelling at site. Pressure dressing applied. Administered Medications: 07:30 Drug: TORadol - Ketorolac 15 mg Route: IVP; Site: right antecubital; jl7 08:00 Follow up: Response: No adverse reaction; Pain is decreased jl7 07:32 Drug: SOLU-Medrol 125 mg Route: IVP; Site: right antecubital; jl7 08:40 Follow up: Response: No adverse reaction jl7 07:35 Drug: morphine 4 mg Route: IVP; Site: right antecubital; jl7 08:00 Follow up: Response: No adverse reaction; Pain is decreased jl7 07:38 Drug: Robaxin 1 grams Route: IVPB; Infused Over: 1 hrs; Site: right antecubital; jl7 08:08 Follow up: Response: No adverse reaction; IV Status: Completed infusion jl7 Outcome: 08:50 Discharge ordered by . rosalinda 08:58 Discharged to home ambulatory. jl7 08:58 Condition: stable 08:58 Discharge instructions given to patient, Instructed on discharge instructions, follow up and referral plans. medication usage, Demonstrated understanding of instructions, follow-up care, medications, Prescriptions given X 3. 08:59 Patient left the ED. jl7 Signatures: Jordan Lerner MD MD kdr Martinez, Amelia as Calderon, Audri, RN RN aa5 Ben Gan RN RN jl7
[2020-08-26 09:11] VITALS: TEMP 97.9; O2SAT 100
[2020-08-26 09:12] VITALS: BP 117/62
== END 2020-08-26 08:59 | disposition home or self-care (01) ==
LOC: ER 07:01
DX: M54.31 Sciatica, right side (principal); F17.210 Nicotine dependence, cigarettes, uncomplicated
CPT/HCPCS: 96365; 96375; 99284; J2800; J2930

== ENCOUNTER 2020-10-08 13:12 | Emergency (ER) | payer SELFPAY ==
[2020-10-08 14:23] LABS: Urine Blood TRACE (NEG); Urine Glucose NEGATIVE (NEG); Urine Protein NEGATIVE (NEG); Urine Specific Gravity 1.025 (1.005-1.030); Urine pH 7.5 (5.0-7.0)
[2020-10-08 14:25] LABS: Absolute Lymphocytes (CBC) 1.5 K/uL (0.7-4.9); Basophils % 0.9 % (0-1.3); Hematocrit 38.3 % (36.0-45.0); Lymphocytes % 20.1 % (15.3-44.8); MPV 8.4 fL (7.6-11.3); RBC Red Blood Cell Count 5.69 M/uL (3.86-4.86)
[2020-10-08 14:29] LABS: Protime INR 0.97
[2020-10-08 14:39] LABS: ALT/SGPT 23 U/L (12-78); AST/SGOT 14 U/L (15-37); Albumin 4.2 g/dL (3.4-5.0); Alkaline Phosphatase 90 U/L (45-117); BUN Blood Urea Nitrogen 9 mg/dL (7-18); Barbiturates NEGATIVE (NEGATIVE); Benzodiazepines NEGATIVE (NEGATIVE); Bicarbonate 25 mmol/L (21-32); Bilirubin Direct < 0.1 mg/dL (0-0.2); Bilirubin Total 0.3 mg/dL (0.2-1.0); Cocaine NEGATIVE (NEGATIVE); Glucose Level 124 mg/dL (74-106); METHAMPHETAM NEGATIVE (NEGATIVE); Methadone NEGATIVE (NEGATIVE); Opiates NEGATIVE (NEGATIVE); Phencyclidine NEGATIVE (NEGATIVE); Potassium 3.6 mmol/L (3.5-5.1); Sodium Level 142 mmol/L (136-145); THC Cannibis POSITIVE (NEGATIVE)
[2020-10-08 14:53] LABS: Blood Morphology Comment NOTED (NOT SEEN); Hypochromasia 1+; Platelet Estimate ADEQ; White Blood Cell Scan OK (OK)
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
--- NOTE | 2020-10-08 16:56 | ER ---
Nurse's Notes [facility] Name: Shital Woodson Age: 35 yrs Sex: Female : 1985 Arrival Date: 10/08/2020 Time: 13:21 Bed 19 Private MD: Diagnosis: Irritability and anger Presentation: 10/08 13:21 Chief complaint: EMS states: "SHE HAD A TOUGH DAY AT THE [facility]". Coronavirus bp screen: At this time, the client does not indicate any symptoms associated with coronavirus-19. Ebola Screen: No symptoms or risks identified at this time. Initial Sepsis Screen: Does the patient meet any 2 criteria? No. Patient's initial sepsis screen is negative. Does the patient have a suspected source of infection? No. Patient's initial sepsis screen is negative. Risk Assessment:. Onset of symptoms is unknown. 13:21 Method Of Arrival: EMS: [facility] bp 13:21 Acuity: CATIE 2 bp Triage Assessment: 13:23 General: Appears in no apparent distress. comfortable, obese, Behavior is agitated, bp anxious, crying. Pain: Denies pain. EENT: No deficits noted. Neuro: No deficits noted. Cardiovascular: No deficits noted. Respiratory: No deficits noted. GI: No signs and/or symptoms were reported involving the gastrointestinal system. : No signs and/or symptoms were reported regarding the genitourinary system. Derm: No deficits noted. Musculoskeletal: No deficits noted. Historical: - Allergies: 13:23 No Known Allergies; bp - Home Meds: 13:23 None [Active]; bp - PMHx: 13:23 Back pain; Bipolar disorder; PTSD; bp - Immunization history:: Adult Immunizations unknown. - Social history:: Smoking status: unknown. Screenin:24 Abuse screen: Denies threats or abuse. Denies injuries from another. Nutritional bp screening: No deficits noted. Tuberculosis screening: No symptoms or risk factors identified. Fall Risk None identified. Assessment: 13:24 General: SEE TRIAGE NOTE. bp 15:30 Reassessment: Patient appears in no apparent distress at this time. No changes from bp previously documented assessment. PT SPOKE WITH [employer] COUNSELOR ON PERSONAL PHONE. MEDICALLY CLEARED, PIV REMOVED. 16:40 Reassessment: PT REFUSING TO SPEAK TO [employer] SCREENER, STATING SHE WISHES TO LEAVE. bp 16:54 Reassessment: PT ELOPED FROM ER, REFUSING TO LISTEN TO COUNSELING BY STAFF AND bp PROVIDER. PT LAST SEEN IN STABLE CONDITION, AO4, STEADY GAIT. Psych: 13:30 Subjective: Patient's mood is irritable, Delusions are denied, Hallucinations are bp denied Having thoughts of IRRITABLE. Objective: Patient is irritable, Speech is normal, Affect is appropriate. Suicide Risk Assessment: Sad Person Scale: Sex of patient: Female: Score 0 points. Age of patient: Score 1 point if patient 15-34. Depression: Score 0 point if signs of depression are not present. Previous Attempt: Score 0 point if patient has not previously attempted suicide. Substance Abuse: Score 1 point if patient abuses alcohol or drugs. Rational Thinking: Score 0 point if patient has rational thinking. Social Support: Score 0 if social support is present/available. Organized Plan: Score 0 if patient did not have an organized plan in place. Relationship: Score 0 point if patient has a spouse or domestic partner. Chronic Sickness: Score 0 point if patient does not have a chronic illness, debilitating, or severe disorder. TOTAL POINTS: If total points are 0-2, proposed clinical action is to send home with follow-up. Patient uses marijuana. 15:30 Consultation: Psych guide tour notified of patients arrival. bp Vital Signs: 13:21 BP 127 / 82; Pulse 98; Resp 19; Temp 99.5; Pulse Ox 98% ; bp 15:30 BP 120 / 82; Pulse 84; Resp 16; Pulse Ox 99% ; bp ED Course: 13:21 Patient arrived in ED. bp 13:23 Triage completed. bp 13:23 Arm band placed on. bp 13:24 Patient has correct armband on for positive identification. Bed in low position. Call bp light in reach. Side rails up X2. 13:25 Fabiano Hinton, PAULO is Primary Nurse. bp 13:26 Itzel Almanza FNP-C [facility]. kb 13:26 Minor Lerma MD is Attending Physician. kb 14:08 Inserted saline lock: 20 gauge in right antecubital area, using aseptic technique. dh4 Blood collected. 15:07 called and spoke with Radu from the [facility] to page out the screener cost controller.eb 15:30 IV discontinued, intact, bleeding controlled, No redness/swelling at site. Pressure bp dressing applied. 15:44 The [facility] screener cost controller will be here in 45 min to an hour. eb 16:55 No provider procedures requiring assistance completed. bp Administered Medications: No medications were administered Outcome: 16:55 Eloped from patient exam room, after seeing physician bp 16:55 Condition: stable 16:59 Patient left the ED. bp Signatures: Itzel Almanza, Fabiano Schroeder RN RN bp Rona Lindsey eb Chito Xie [facility] Corrections: (The following items were deleted from the chart) 15:29 15:27 called and spoke with Radu from the [facility] to page out the screener eb cost controller. eb
--- NOTE | 2020-10-09 20:03 | EKG ---
Test Date: 2020-10-08 Test Time: 14:37:04 Automotive Service Professional: DESHAUN MEASUREMENT RESULTS: Intervals: Rate: 79 WY: 152 QRSD: 88 QT: 360 QTc: 412 [place]: P: 28 WY: 152 QRS: 67 T: 63 INTERPRETIVE STATEMENTS: Sinus rhythm with fusion complexes Otherwise normal ECG Compared to ECG 10/26/2012 19:27:54 Fusion complex(es) now present Electronically Signed On 10-09-20 20:01:21 CMM TECHNICIAN by Denilson Ferrell
[2020-10-13 18:53] VITALS: TEMP 99.5
[2020-10-13 18:55] VITALS: BP 120/82; O2SAT 99
== END 2020-10-08 16:59 | disposition left against medical advice (07) ==
LOC: ER 13:12
DX: R45.4 Irritability and anger (principal); F31.9 Bipolar disorder, unspecified
CPT/HCPCS: 36415; 80048; 80076; 80307; 80320; 80329; 81003; 81025; 85025; 85610; 85730; 93005; 99284

== ENCOUNTER 2021-11-03 13:06 | Emergency (ER) | payer SELFPAY ==
--- OUTSIDE RECORDS SUMMARY | 2021-11-03 13:09 | XMS REPORT | Continuity of Care Document ---
:[address] [facility] t Address [address] [place] [address] Care Team Providers Name Role Phone PCP, DOES NOT HAVE A Primary Care Physician Unavailable Bushra BATES, T Attending Clinician Unavailable Kyaw WHITLOCK Attending Clinician Unavailable Wade HASSAN, S Attending Clinician Quentin SEAY Attending Clinician Payers Payer Name Policy Type Policy Number Effective Date Expiration Date S mike Problems Condition Condition Condition Status Onset Resolution Last Treating Co mments Source Name Details Category Date Date Treatment Clinician Date No known No known Disease Unive rs active active ity of problems problems [facility] Allergies, Adverse Reactions, Alerts Allergy Allergy Status Severity Reaction(s) Onset Inactive Treating Comm ents Source Name Type Date Date Clinician NO KNOWN Drug Active Univers ALLERGIE Class ity of S [facility] Social History Social Habit Start Date Stop Date Quantity Comments Source Exposure to Not sure [facility] SARS-CoV-2 (event) Medica l Branch Sex Assigned At [birth year] [facility] 00:00:00 00:00:00 [facility] Smoking Status Start Date Stop Date Source Unknown if ever smoked [facility] Medications Ordered Filled Start Stop Current Ordering Indication Dosage Frequency Signature Comments Components Source Medication Medication Date Date Medication? Clinician (SIG) Name Name acetaminoph 2020-11- No 1000mg 1,000 mg, Univers en 01-01 Oral, ity of (TYLENOL) 22:30: 21:32 [place]CE[place] dose, On Medical 1,000 mg [facility] 10/31/21 at 1630, Routine ondansetron 2020-11 Yes [id number] 4mg Take 1 Univers (ZOFRAN 2-27 tablet by ity of ODT) 4 mg 00:00: mouth [place] disintegrat 00 every 8 Medic al ing tablet (eight) Branch hours as needed for Nausea and Vomiting (N/V). ondansetron 2020-11 Yes [id number] 4mg Take 1 Univers (ZOFRAN 2-27 tablet by ity of ODT) 4 mg 00:00: mouth [place] disintegrat 00 every 8 Medic al ing tablet (eight) Branch hours as needed for Nausea and Vomiting (N/V). No known No Univers medications [facility] [place] [facility] Vital Signs Vital Name Observation Time Observation Value Comments Source Systolic blood 2021-10-31 19:55:00 114 mm[Hg] Univer [facility]ity of [facility] Diastolic blood 2021-10-31 19:55:00 72 mm[facility]Hg] [facility] Heart rate 2021-10-31 19:55:00 78 /min [facility] Body temperature 2021-10-31 19:55:00 37.39 Halle [facility] Respiratory rate 2021-10-31 19:55:00 14 /min [facility] Body weight 2021-10-31 19:55:00 81.647 kg [facility] BMI 2021-10-31 19:55:00 35.15 kg/m2 [facility] Oxygen saturation in 2021-10-31 19:55:00 99 /min [facility] Arterial blood by [facility] Pulse oximetry Branch Systolic blood 2020-12-20 06:02:00 119 mm[Hg] Univer sity [facility] Diastolic blood 2020-12-20 06:02:00 87 mm[Hg] [facility] rate 2020-12-20 06:02:00 77 /min [facility] Body temperature 2020-12-20 06:02:00 37.28 Halle [facility] Respiratory rate 2020-12-20 06:02:00 18 /min [facility] Body height 2020-12-20 06:02:00 152.4 cm [facility] Body weight 2020-12-20 06:02:00 84.823 kg [facility] BMI 2020-12-20 06:02:00 36.52 kg/m2 [facility] Oxygen saturation in 2020-12-20 06:02:00 99 /min University Arterial blood by [facility] Pulse oximetry Branch Procedures Procedure Date / Time Performing Clinician Source Performed RAPID INFLUENZA A/B 2021-10-31 20:33:00 Carla Saavedra [facility] CONSENT/REFUSAL FOR 2021-10-31 19:47:02 Doctor Unassigned, No Un [facility] DIAGNOSIS AND TREATMENT Name [facility] XR CHEST 1 VW 2020-12-20 06:30:51 Quentin [facility] CREATINE KINASE 2020-12-20 06:23:00 Quentin [facility] THYROID STIMULATING 2020-12-20 06:23:00 Carla Saavedra [facility] HORMONE [facility] HEPATIC FUNCTION PANEL 2020-12-20 06:23:00 Quentin [facility] ([id number]) (ALB,T.PRO,BILI [facility] T,BU/BC,ALT,AST,ALK PHOS) BASIC METABOLIC PANEL 2020-12-20 06:23:00 aCrla Saavedra [facility] (NA, K, CL, CO2, [facility] GLUCOSE, BUN, CREATININE, CA) SALICYLATE 2020-12-20 06:23:00 Quentin [facility] ETHANOL 2020-12-20 06:23:00 [facility]FF 2020-12-20 06:23:00 Quentin [facility] TEST, URINE 2020-12-20 06:18[facility] 2020-12-20 06:18:00 Jarred Goodson [facility] ADC / [facility] - DRUG SCREEN 2020-12-20 06:18:00 Carla Saavedra [facility] TRIAGE [facility] COVID-19 (ID NOW RAPID 2020-12-20 06:17:00 Quentin [facility] TESTING) Medical Branch NOTICE OF PRIVACY 2020-12-20 05:49:25 Doctor Unassigned, No [facility] PRACTICES Name Medical Branch CONSENT/REFUSAL FOR 2020-12-20 05:49:12 Doctor Unassigned, No [facility] DIAGNOSIS AND TREATMENT Name Medical [place] Encounters Start End Encounter Admission Attending Care Care Encounter Source Date/Time Date/Time Type Type Clinicians Facility Department ID 2021-11-01 2021-11-01 Letter KAYCEE Tomlinson [id number] Univers 00:00:00 00:00:00 (Out) Petra Tobin ZORAN [id number] it y [facility] [id number] [place] [id number] [address] 2021-10-31 2021-10-31 Emergency X [facility] ERT [id number] Univers 13:56:00 17:09:00 ESTELA [facility] 2021-10-31 2021-10-31 Emergency [facility] [id number] Univers 13:56:00 17:09:00 Estela KRISHNA [id number] i ty of [place] [id number] [facility] [id number] [address] 2020-12-20 2020-12-20 Emergency [facility] [id number] Univers 00:19:00 09:24:00 Carla Claude [id number] i ty of [place] [id number] [facility] [id number] [address] 2020-12-19 2020-12-19 Emergency X [facility] ERT [id number] Univers 23:48:00 23:48:00 [facility] Results Test Description Test Time Test Comments Results Result Comments Source Thyroid Stimulating Hormone 2020-12-20 07:30:00 Test Item Value Reference Range Interpretation Comme nts TSH (test code = 4855512212) See_Comment [Automated message] The system which generated this result transmitted ref erence range: 0.45 - 4.70 mIU/L. T he reference range was not used to interpret this result as edouard l/abnormal. Lab Interpretation (test code = Normal 25291-6) [facility] Test Item Value Reference Range Interpretation Comments APPEARANCE (test code = Hazy Clear A 2508655477) COLOR (test code = Yellow Yellow 9679549729) PH (test code = 4.8-8.0 2939480333) SP GRAVITY (test code = 1.003-1.030 9269581668) GLU U QUAL (test code = Normal Normal 0295192657) BLOOD (test code = Negative Negative 6857451780) KETONES (test code = Negative Negative 2677948395) PROTEIN (test code = Negative Negative 2887-8) UROBILIN (test code = Normal Normal 9755571694) BILIRUBIN (test code = Negative Negative 4436813650) NITRITE (test code = Negative Negative 7256692301) LEUK BECCA (test code = Negative Negative 2038472525) RBC/HPF (test code = See_Comment [Autom ated message] 6100531809) The system testbirds generated this result transmitted ref erence range: 0 - 3 HP F. The reference range was not used to int erpret this result as normal/abnormal . WBC/HPF (test code = <1 See_Comment [Autom ated message] 3808744444) The system testbirds generated this result transmitted ref erence range: 0 - 5 HP F. The reference range was not used to int erpret this result as normal/abnormal . BACTERIA (test code = Few Negative A 7741927943) MUCOUS (test code = Moderate Negative LPF A 1615096865) SQ EPITH (test code = HPF 8086526419) Lab Interpretation (test Abnormal code = 26815-1) [facility] NOW RAPID TESTING)2020-12-20 07:03:00 Test Item Value Reference Range Interpretation Comments SARS-CoV-2 Rapid ID NOW Not Detected Not Detected (test code = 07608-5) MURPHY (test code = MURPHY) ID NOW COVID-19 Assay is an isothermal nucleic acid amplification test intended for the qualitative detection of nucleic acid from SARS-CoV-2 viral RNA in nasopharyngeal (NUMBERER AND WIRER) specimens. It is used under Emergency Use Authorization (EUA) by FDA. The limit of detection (LOD) of the assay is 125 Genome Equivalents/mL. A positive result is indicative of the presence of SARS-CoV-2 RNA. ?Clinical correlation with patient history and other diagnostic information is necessary to determine patient infection status. A negative (Not Detected) result does not preclude SARS-CoV-2 infection. In patients with clinical symptoms and other tests that are consistent with SARS-CoV-2 infection, negative results should be treated as presumptive negative and a new specimen should be tested with alternative PCR molecular test. Invalid: Please collect a new specimen for repeat patient testing if clinically indicated. Lab Interpretation Normal (test code = 05424-8) [facility] - DRUG SCREEN [id number] 07:02:00 Test Item Value Reference Range Interpretation Comments BENZO U (test code = Negative Negative 8306869247) KB U (test code = Negative Negative 6743223578) AMPHET (test code = Negative Negative 3761452964) THC (test code = Presumptive Negative A Confirmatio n of 1866062414) Positive Presumptive Positive THC result requires physician order . METHADONE (test code Negative Negative = 5788120393) Meth U (test code = Negative Negative 7178765357) OPIATES (test code = Negative Negative 6653839037) Cocaine Metabolite Negative Negative (test code = 8744505949) PROPOXY (test code = Negative Negative 5082455832) Tric U (test code = Negative Negative 5892106020) PCP (test code = Negative Negative 3570773621) OXYCOD (test code = Negative Negative 1850235082) MURPHY (test code = Urine Drug Cutoff MURPHY) Ranges Benzodiazepines: ? ? 150 ng/mLBarbiturates : ?200 ng/mLAmphetamine: ? 500 ng/mLCannabinoids : ?50 ?ng/mLMethadone: ? 200 ng/mLMethamphetam ine: ? ? 500 ng/mL Opiates: ? 100 ng/mL or 2000 ng/mLCocaine: ? 150 ng/mLPropoxyphene : ?300 ng/mLTricyclics: ?300 ng/mLOxycodone: ? 100 ng/mLPCP: ? 25 ?ng/mL The results are to be used only for medical (i.e., treatment) purposes. Unconfirmed screening results must not be used for non-medical purposes (e.g., employment testing, legal testing). Lab Interpretation Abnormal (test code = 97809-5) [facility] [id number] 07:00:00 Test Item Value Reference Range Interpretation Comments ALCOHOL (test code = <10 mg/dL 6635905707) MURPHY (test code = MURPHY) <10 Uskzabnl92-462 Toxic>100 Depression of VENIPUNCTURIST>400 Fatalities Reported [facility]2021-[facility]-15 07:00:00 Test Item Value Reference Range Interpretation Comments ACETAMINOP (test code = <10.0 10-30 L 1711685156) MURPHY (test code = MURPHY) Toxic: Greater than 200 ug/mL @ 4 hour post ingestion or greater than 50 ug/mL @ 12 hour post ingestion Lab Interpretation (test Abnormal code = 21674-2) [facility]2021-[facility]-15 07:00:00 Test Item Value Reference Range Interpretation Comments SALICYLATE (test code <10 mg/L = 5287677124) MURPHY (test code = MURPHY) Therapeutic Range: ? Analgesic and Antipyretic Use ? 20-100 mg/L ? ? Anti-Inflammatory Use ? 100-250 mg/L Toxic Range: ? Greater than 300 mg/L [facility] (NA, K, CL, CO2, Glucose, BUN, Creatinine, CA)2020-12-20 06:59:00 Test Item Value Reference Range Interpretation Comments NA (test code = 139 mmol/L 135-145 1152564921) K (test code = 3.9 mmol/L 3.5-5 6601148236) CL (test code = 109 mmol/L 98-108 H 5726813859) CO2 TOTAL (test code = 22 mmol/L 23-31 L 6021727780) AGAP (test code = 2-16 7828810208) BUN (test code = 7 mg/dL 7-23 1536247501) GLUCOSE (test code = 105 mg/dL 70-110 2231512930) CREATININE (test code = 0.70 mg/dL 0.5-1.04 2055187134) CALCIUM (test code = 9.3 mg/dL 8.6-10.6 7961381492) eGFR Calculation mL/min/1.73m2 (Non-) (test code = 3767725238) eGFR Calculation mL/min/1.73m2 () (test code = 2206715970) MURPHY (test code = MURPHY) Association of Glomerular Filtration Rate (GFR) and Staging of Kidney Disease* + --+ --+ ------+| GFR (mL/min/1.73 m2) ?| With Kidney Damage ?| ?Without Kidney Damage+ --------+ --------+ +| ?>90 ?| ?Stage one ?| ? Normal ?+ ---+ ---+ -------+| ?60-89 ?| ?Stage two ?| ? Decreased GFR ? + --+ --+ ------+| ?30-59 ?| ?Stage three ?| ? Stage three ? + --+ --+ ------+| ?15-29 ?| ?Stage four ? | ? Stage four ?+ ---+ ---+ -------+| ?<15 (or dialysis) ? ?| ?Stage five ? | ? Stage five ?+ ---+ ---+ -------+ *Each stage assumes the associated GFR level has been in effect for at least three months. ?Stages 1 to 5, with or without kidney disease, indicate chronic kidney disease. Notes: Determination of stages one and two (with eGFR >59mL/min/1.73 m2) requires estimation of kidney damage for at least three months as defined by structural or functional abnormalities of the kidney, manifested by either:Pathological abnormalities or Markers of kidney damage (including abnormalities in the composition of the blood or urine or abnormalities in imaging tests). Lab Interpretation Abnormal (test code = 78910-4) [facility] (ALB, T.PRO, BILI T, BU/BC, ALT, AST, ALK PHOS)2020-12-20 06:59:00 Test Item Value Reference Range Interpretation Comments TOTAL BILI (test code = 0162835612) 0.4 mg/dL 0.1-1.1 BILI UNCON (test code = 9472784620) 0.2 mg/dL 0.1-1.1 BILI CONJ (test code = 8446604073) 0.0 mg/dL 0-0.3 T PROTEIN (test code = 6225200438) 6.9 g/dL 6.3-8.2 ALBUMIN (test code = 2209727520) 4.4 g/dL 3.5-5 ALK PHOS (test code = 2864915812) 88 U/L 34-122 ALTv (test code = 1742-6) 13 U/L 5-35 AST(SGOT) (test code = 3995961870) 21 U/L 13-40 Lab Interpretation (test code = Normal 99787-0) [facility] [id number] 06:59:00 Test Item Value Reference Range Interpretation Comments CK (test code = 8314121076) 107 U/L 33-194 Lab Interpretation (test code = Normal 62432-1) [facility] Tyler[facility]regnancy Test, [id number] 06:54:00 Test Item Value Reference Range Interpretation Comments PREG URINE (test code Negative = 7193426825) MURPHY (test code = MURPHY) Less than 20 IU/L. ?If low titer or ectopic is suspected, resubmit specimen in 48-72 hours. [facility] Tyler[facility] with [id number] 06:34:00 Test Item Value Reference Range Interpretation Comments WBC (test code = See_Comment H [Automated 6990-2) message] The sy stem which generated this result transmitted reference range : 4.30 - 11.10 10*3/?L. The reference range was not used to interpret this result as normal/abnormal . RBC (test code = See_Comment H [Automated 785-8) message] The sy stem which generated this result transmitted reference range : 3.93 - 5.25 10*6/?L. The reference range was not used to interpret this result as normal/abnormal . HGB (test code = 11.7 g/dL 11.6-15 718-7) HCT (test code = 39.1 % 35.7-45.2 4544-3) MCV (test code = 72.8 fL 80.6-95.5 L 787-2) MCH (test code = 21.8 pg 25.9-32.8 L 785-6) MCHC (test code = 29.9 g/dL 31.6-35.1 L 786-4) RDW-SD (test code = 46.5 fL 39-49.9 49582-1) RDW-CV (test code = 17.8 % 12-15.5 H 788-0) PLT (test code = See_Comment H [Automated 777-3) message] The sy stem which generated this result transmitted reference range : 166 - 358 10*3/ ?L. The reference r lidia was not used to interpret this result as normal/abnormal . MPV (test code = 9.5 fL 9.5-12.9 31044-3) NRBC/100 WBC (test See_Comment [Automat ed code = 1807803075) message] The system which generated this result transmitted reference range : 0.0 - 10.0 /100 WBCs. The refer ence range was not u sed to interpret th is result as normal/abnormal . NRBC x10^3 (test code <0.01 See_Comment [Auto mated = 4754147649) message] The s ystem which generated this result transmitted reference range : 10*3/?L. The reference range was not used to interpret this result as normal/abnormal . GRAN MAT (NEUT) % 75.6 % (test code = 770-8) IMM GRAN % (test code 0.30 % = 8111510281) LYMPH % (test code = 17.7 % 736-9) MONO % (test code = 5.6 % 5905-5) EOS % (test code = 0.3 % 713-8) BASO % (test code = 0.5 % 706-2) GRAN MAT x10^3(ANC) 8.47 10*3/uL 1.88-7.09 H (test code = 0636989755) IMM GRAN x10^3 (test 0.03 10*3/uL 0-0.06 code = 9498234376) LYMPH x10^3 (test code 1.98 10*3/uL 1.32-3.29 = 731-0) MONO x10^3 (test code 0.63 10*3/uL 0.33-0.92 = 742-7) EOS x10^3 (test code = 0.03 10*3/uL 0.03-0.39 711-2) BASO x10^3 (test code 0.06 10*3/uL 0.01-0.07 = 704-7) Lab Interpretation Abnormal (test code = 70203-5) [facility] 1 [id number] 06:32:52 No acute intrathoracic abnormality.PROCEDURE: XR CHEST 1 VW CLINICAL INDICATION: medical clearanceCOMPARISON: None FINDINGS: The lungs are clear. No pleural effusion or pneumothorax is seen. The cardiomediastinal silhouette is normal. No acute bony abnormality. [facility], Radiant Results Inft User - 12/20/2020 12:33 AM CSTPROCEDURE: XR CHEST 1 VWCLINICAL INDICATION: medical clearance COMPARISON: NoneFINDINGS:The lungs are clear. No pleural effusion or pneumothorax is seen. The cardiomediastinal silhouette is normal. No acute bony abnormality.IMPRESSIONNo acute intrathoracic abnormality.[facility]"
[2021-11-03] MEDS ORDERED: NA CHLORIDE 0.9% 1,000 ML ONE (14:37)
[2021-11-03] MEDS ORDERED: NA CHLORIDE 0.9% 500 ML ONE (14:38)
[2021-11-03 15:00] LABS: Urine Blood 2+ (Negative); Urine Glucose Negative (Negative); Urine Protein 1+ (Negative); Urine Specific Gravity 1.025 (1.005-1.030); Urine pH 7.5 (5.0-7.0)
[2021-11-03 15:21] LABS: Absolute Lymphocytes (CBC) 1.4 K/uL (0.7-4.9); Hematocrit 40.1 % (36.0-45.0); Lymphocytes % 46.4 % (15.3-44.8); MPV 7.9 fL (7.6-11.3)
[2021-11-03] MEDS ORDERED: ACETAMINOPHEN 500 MG TAB ONE (15:25)
[2021-11-03 15:34] LABS: Protime INR 0.98
[2021-11-03] MEDS ORDERED: AZITHROMYCIN 250 MG TAB ONE (15:38)
[2021-11-03] MEDS ORDERED: ASPIRIN 81 MG CHEWABLE TABLET ONE (15:38)
[2021-11-03] MEDS ORDERED: FAMOTIDINE 20 MG TAB ONE (15:38)
[2021-11-03 15:39] LABS: ALT/SGPT 22 U/L (12-78); AST/SGOT 14 U/L (15-37); Albumin 3.7 g/dL (3.4-5.0); Alkaline Phosphatase 83 U/L (45-117); BUN Blood Urea Nitrogen 9 mg/dL (7-18); Bicarbonate 26 mmol/L (21-32); Bilirubin Direct < 0.1 mg/dL (0-0.2); Bilirubin Total 0.3 mg/dL (0.2-1.0); Ferritin 6.5 ng/mL (8-388); Glucose Level 86 mg/dL (74-106); Magnesium 2.3 mg/dL (1.8-2.4); Potassium 3.6 mmol/L (3.5-5.1); Protein, Total 7.4 g/dL (6.4-8.2); Sodium Level 139 mmol/L (136-145); Troponin (Emerg Dept Use Only) < 0.02 ng/mL (0.0-0.045)
[2021-11-03 15:40] LABS: C-Reactive Protein < 2.90 mg/L (<3.00); NT PRO-BNP < 5 pg/mL (<125)
--- NOTE | 2021-11-03 16:14 | RAD REPORT ---
EXAM DESCRIPTION: CT - Head Brain Wo Cont - 11/03/2021 3:52 pm CLINICAL HISTORY: Dizziness COMPARISON: None. TECHNIQUE: Computed axial tomography of the head was obtained. IV contrast was not requested. All CT scans are performed using dose optimization technique as appropriate and may include automated exposure control or mA/KV adjustment according to patient size. FINDINGS: An intracranial bleed is not seen . The ventricles are normal in caliber. No extra-axial fluid collection is noted. Fluid within the sinuses/ mastoids is not seen. IMPRESSION: No acute intracranial abnormality is seen. If patient's symptoms persist MRI of the bra in would be recommended.
--- NOTE | 2021-11-03 16:19 | RAD REPORT ---
EXAM DESCRIPTION: CT - Chest For Pe Angio - 11/03/2021 3:58 pm CLINICAL HISTORY: Chest pain COMPARISON: None. TECHNIQUE: Dynamically enhanced axial 3 mm thick images of the chest were obtained during administra tion of <100> mL Isovue 370 IV contrast. Coronal and oblique reconstruction images were generated and reviewed. Exam utilizes a protocol for optimal evaluation of pulmonary arterial tree. Maximum intensity projections 3D imaging was utilized All CT scans are performed using dose optimization technique as appropriate and may include automated exposure control or mA/KV adjustment according to patient size. FINDINGS: A pulmonary embolus is not seen. A thoracic aortic aneurysm is not noted. A pleural effusion is not seen. A pericardial effusion is not seen. A lung consolidation is not present. IMPRESSION: Negative for a pulmonary embolism.
--- NOTE | 2021-11-03 16:19 | RAD REPORT ---
EXAM DESCRIPTION: Too Single View11/03/2021 2:48 pm CLINICAL HISTORY: Chest pain COMPARISON: 2019 FINDINGS: The lungs appear clear of acute infiltrate. The heart is normal size IMPRESSION: No acute abnormalities displayed
[2021-11-03] MEDS ORDERED: FOLIC ACID 5 MG/ML VIAL ONE (16:26)
--- NOTE | 2021-11-03 16:33 | ER ---
Nurse's Notes [facility] Name: Shital Woodson Age: 36 yrs Sex: Female : 1985 Arrival Date: 11/03/2021 Time: 13:20 Bed 15 Private MD: Diagnosis: Coronavirus infection, unspecified;Acute upper respiratory infection, unspecified;Fever, unspecified;Bipolar disorder, current episode mixed, mild Presentation: 11/03 13:21 Chief complaint: EMS states: COVID+ x3 days; initial BP 110/80, pt became diaphoretic jl7 and clammy on arrival at ED BP 78/48, pt reported tingling on left side of face with bilateral arm and hand weakness. Coronavirus screen: fever, Client presents with at least one sign or symptom that may indicate coronavirus-19. Standard/surgical mask placed on the client. Provider contacted for isolation considerations. Ebola Screen: No symptoms or risks identified at this time. Initial Sepsis Screen: Does the patient meet any 2 criteria? No. Patient's initial sepsis screen is negative. Does the patient have a suspected source of infection? No. Patient's initial sepsis screen is negative. Risk Assessment: Do you want to hurt yourself or someone else? Patient reports no desire to harm self or others. Onset of symptoms was November 01, 2021. Care prior to arrival: None. 13:21 Method Of Arrival: EMS: [place] [id number] 13:21 Acuity: CATIE 3 jl7 Triage Assessment: 13:28 General: Appears in no apparent distress. uncomfortable, Behavior is cooperative, jl7 crying, fussy. Pain: Complains of pain in body aches Pain currently is 7 out of 10 on a pain scale. Neuro: Level of Consciousness is awake, alert, obeys commands, Oriented to person, place, time, situation. Cardiovascular: Patient's skin is warm and dry. Respiratory: Airway is patent Respiratory effort is even, unlabored, Respiratory pattern is symmetrical, hyperventilation tachypnea. Derm: Skin is pink, warm \T\ dry. SLEEVE SEWER: 16:48 unknown jg9 Historical: - Allergies: 13:28 No Known Allergies; jl7 - Home Meds: 13:28 None [Active]; jl7 - PMHx: 13:28 Back pain; Bipolar disorder; PTSD; jl7 - PSHx: 13:28 None; jl7 - Immunization history:: Client reports having NOT received the Covid vaccine. - Social history:: Smoking status: Reported history of juuling and/or vaping. Patient uses street drugs, marijuana. Screenin:14 Abuse screen: Denies threats or abuse. Denies injuries from another. Nutritional jg9 screening: No deficits noted. Tuberculosis screening: No symptoms or risk factors identified. Fall Risk None identified. Assessment: 14:50 General: Appears in no apparent distress. Behavior is calm. Pain: Complains of pain in jg9 head, neck, chest, abdomen, pelvis, right arm, right hand, left arm, left hand, right leg, right foot, left leg, left foot, back of head, back of neck, back of left arm, back of right arm, posterior chest, buttocks, back of left leg, back of right leg, left heel, right heel and back. Neuro: No deficits noted. Cardiovascular: No deficits noted. Respiratory: Reports shortness of breath since 11/01/21 Patient and multiple family members have tested positive for COVID, patient reports body aches, and sob. GI: No deficits noted. : No deficits noted. EENT: No deficits noted. Derm: No deficits noted. Musculoskeletal: No deficits noted. 16:29 Reassessment: Patient reports she is starving and wanted to know if family could bring jg9 her some food, this nurse provided patient with a lunch box. Vital Signs: 13:21 BP 133 / 66; Pulse 64; Resp 23; Temp 98.4(O); Pulse Ox 100% on R/A; Weight 81.65 kg; jl7 Height 5 ft. 0 in. (152.40 cm); Pain 7/10; 13:36 BP 127 / 79 Supine; Pulse 75; jl7 13:36 BP 132 / 96 Standing; Pulse 75; jl7 15:00 BP 117 / 87; Pulse 64; Resp 19 S; Pulse Ox 100% on R/A; jg9 16:00 BP 108 / 70; Pulse 61; Resp 14 S; Pulse Ox 100% on R/A; jg9 13:21 Body Mass Index 35.15 (81.65 kg, 152.40 cm) jl7 [place] Coma Score: 16:30 Eye Response: spontaneous(4). Verbal Response: oriented(5). Motor Response: obeys joselito commands(6). Total: 15. NIH Stroke Scale Scores: 15:29 NIHSS Score: 0 joselito ED Course: 13:20 Patient arrived in ED. dh3 13:28 Triage completed. jl7 13:28 Minor Lerma MD is Attending Physician. joselito 13:28 Arm band placed on right wrist. jl7 14:31 Kimmy Khan is Primary Nurse. jg9 14:48 XRAY Chest (1 view) In Process Unspecified. EDMS 14:55 Patient has correct armband on for positive identification. Bed in low position. Call jg9 light in reach. Side rails up X 1. 14:55 Inserted saline lock: 22 gauge in right antecubital area, using aseptic technique. jg9 15:15 Basic Metabolic Panel Sent. jg9 15:15 LFT's Sent. jg9 15:15 Magnesium Sent. jg9 15:15 NT PRO-BNP Sent. jg9 15:52 CT Head Brain wo Cont In Process Unspecified. EDMS 15:58 CT Chest For PE Angio In Process Unspecified. EDMS 16:32 Alex Morin MD is Referral Physician. joselito 16:47 No provider procedures requiring assistance completed. jg9 16:48 IV discontinued. jg9 Administered Medications: 16:47 Discontinued: NS 0.9% 1000 ml IV at 125 ml/hr continuous jg9 15:06 Drug: NS 0.9% 500 ml Route: IV; Rate: bolus; Site: right antecubital; jg9 16:00 Follow up: IV Status: Completed infusion; IV Intake: 500ml jg9 15:28 Drug: Tylenol 1000 mg Route: PO; jg9 16:15 Follow up: Response: No adverse reaction jg9 15:29 CANCELLED (Duplicate Order): NS 0.9% 500 ml IV at bolus once jg9 16:15 Drug: NS 0.9% 1000 ml Route: IV; Rate: 125 ml/hr; Site: right antecubital; jg9 16:49 Follow up: IV Status: Order to discontinue infusion; IV Intake: 150ml jg9 16:15 Drug: Pepcid (famotidine) 40 mg Route: PO; jg9 16:46 Follow up: Response: No adverse reaction jg9 16:15 Drug: Zithromax (azithromycin) 500 mg Route: PO; jg9 16:46 Follow up: Response: No adverse reaction jg9 16:15 Drug: Aspirin Chewable Tablet 324 mg Route: PO; jg9 16:46 Follow up: Response: No adverse reaction jg9 16:27 Drug: foLIC Acid 1 mg Route: IVPB; Site: right antecubital; jg9 16:46 Follow up: Response: No adverse reaction jg9 Point of Care Testing: Urine : 14:57 hCG Reading: Negative; Control Reading: Positive; jg9 14:57 Exp: 03/04/2023; Lot #: [id number]; jg9 Intake: 16:00 IV: 500ml; Total: 500ml. jg9 16:49 IV: 150ml; Total: 650ml. jg9 Outcome: 16:32 Discharge ordered by MD. joselito 16:47 Discharged to home ambulatory. jg9 16:47 Condition: improved 16:47 Discharge instructions given to patient, Instructed on discharge instructions, follow up and referral plans. Demonstrated understanding of instructions, follow-up care, medications, Prescriptions given X 4. 16:49 Patient left the ED. jg9 NIH Stroke Scale - NIH Stroke Score Date: 11/03/2021 Time: 15:29 Total Score = 0 1a. Level of Consciousness (LOC) - 0(Alert) 1b. Level of Consciousness (LOC) (Month \T\ Age) - 0(Both) 1c. LOC Commands (Open \T\ Closes Eyes/Lye Treater) - 0(Both) 2. Best Gaze (Lateral Gaze Paresis) - 0(Normal) 3. Visual Field Loss - 0(No visual loss) 4. Facial Palsy - 0(Normal) 5a. Left Arm: Motor (10-second hold) - 0(No drift) 5b. Right Arm: Motor (10-second hold) - 0(No drift) 6a. Left Leg: Motor (5-second hold - always test supine) - 0(No drift) 6b. Right Leg: Motor (5-second hold - always test supine) - 0(No drift) 7. Limb Ataxia (finger/nose \T\ heel/mcghee - test with eyes open) - 0(Absent) 8. Sensory Loss (pinprick arms/legs/face) - 0(Normal) 9. Best Language: Aphasia (description/naming/reading) - 0(No aphasia) 10. Dysarthria (speech clarity - read or repeat words) - 0(Normal) 11. Extinction and Inattention (visual/tactile/auditory/spatial/personal) - 0(No abnormality) Initials: joselito Signatures: Dispatcher [employer] EDMinor Caceres MD MD cha Leal, Jahala, RN RN jl7 Sena Coronado [facility] Kimmy Khan jg9 Corrections: (The following items were deleted from the chart) 15:11 13:36 BP 127 / 77 Sitting; Pulse 74bpm; jl7 jg9
--- NOTE | 2021-11-03 16:33 | EDPHYS ---
Physician Documentation [facility] Name: Shital Woodson Age: 36 yrs Sex: Female : 1985 Arrival Date: 11/03/2021 Time: 13:20 Bed 15 Private MD: ED Physician Minor Lerma HPI: 11/03 15:25 This 36 yrs old Black Female presents to ER via EMS with complaints of COVID+, Fever. joselito 15:25 The patient reports fever, that was measured at 100 degrees Fahrenheit. Onset: The joselito symptoms/episode began/occurred 3 day(s) ago. Modifying factors: there are no obvious modifying factors. Associated signs and symptoms: Pertinent positives: arthralgias, backache, chest pain, cough, headache, nausea, runny nose. Severity of symptoms: At their worst the symptoms were mild moderate this morning. The patient has not experienced similar symptoms in the past. [employer]: 16:48 unknown jg9 Historical: - Allergies: 13:28 No Known Allergies; jl7 - Home Meds: 13:28 None [Active]; jl7 - PMHx: 13:28 Back pain; Bipolar disorder; PTSD; jl7 - PSHx: 13:28 None; jl7 - Immunization history:: Client reports having NOT received the Covid vaccine. - Social history:: Smoking status: Reported history of juuling and/or vaping. Patient uses street drugs, marijuana. ROS: 15:29 Constitutional: Negative for fever, chills, and weight loss, Eyes: Negative for injury, joselito pain, redness, and discharge, ENT: Negative for injury, pain, and discharge, Neck: Negative for injury, pain, and swelling, Cardiovascular: Negative for chest pain, palpitations, and edema, Respiratory: Negative for shortness of breath, cough, wheezing, and pleuritic chest pain, Abdomen/GI: Negative for abdominal pain, nausea, vomiting, diarrhea, and constipation, Back: Negative for injury and pain, : Negative for injury, bleeding, discharge, and swelling, MS/Extremity: Negative for injury and deformity, Skin: Negative for injury, rash, and discoloration, Neuro: Negative for headache, weakness, numbness, tingling, and seizure, Psych: Negative for depression, anxiety, suicide ideation, homicidal ideation, and hallucinations, Allergy/Immunology: Negative for hives, rash, and allergies, Endocrine: Negative for neck swelling, polydipsia, polyuria, polyphagia, and marked weight changes, Hematologic/Lymphatic: Negative for swollen nodes, abnormal bleeding, and unusual bruising. Exam: 15:29 Constitutional: This is a well developed, well nourished patient who is awake, alert, joselito and in no acute distress. Head/Face: Normocephalic, atraumatic. Eyes: Pupils equal round and reactive to light, extra-ocular motions intact. Lids and lashes normal. Conjunctiva and sclera are non-icteric and not injected. Cornea within normal limits. Periorbital areas with no swelling, redness, or edema. ENT: Nares patent. No nasal discharge, no septal abnormalities noted. Tympanic membranes are normal and external auditory canals are clear. Oropharynx with no redness, swelling, or masses, exudates, or evidence of obstruction, uvula midline. Mucous membranes moist. Neck: Trachea midline, no thyromegaly or masses palpated, and no cervical lymphadenopathy. Supple, full range of motion without nuchal rigidity, or vertebral point tenderness. No Meningismus. Chest/axilla: Normal chest wall appearance and motion. Nontender with no deformity. No lesions are appreciated. Cardiovascular: Regular rate and rhythm with a normal S1 and S2. No gallops, murmurs, or rubs. Normal PMI, no JVD. No pulse deficits. Respiratory: Lungs have equal breath sounds bilaterally, clear to auscultation and percussion. No rales, rhonchi or wheezes noted. No increased work of breathing, no retractions or nasal flaring. Abdomen/GI: Soft, non-tender, with normal bowel sounds. No distension or tympany. No guarding or rebound. No evidence of tenderness throughout. Back: No spinal tenderness. No costovertebral tenderness. Full range of motion. Skin: Warm, dry with normal turgor. Normal color with no rashes, no lesions, and no evidence of cellulitis. MS/ Extremity: Pulses equal, no cyanosis. Neurovascular intact. Full, normal range of motion. Neuro: Awake and alert, GCS 15, oriented to person, place, time, and situation. Cranial nerves II-XII grossly intact. Motor strength 5/5 in all extremities. Sensory grossly intact. Cerebellar exam normal. Normal gait. Psych: Awake, alert, with orientation to person, place and time. Behavior, mood, and affect are within normal limits. 15:29 Musculoskeletal/extremity: DVT Exam: No signs of deep vein thrombosis. no pain, no swelling, no tenderness, negative Homans' sign noted on exam, no appreciated bluish discoloration, no erythema, no increased warmth. 15:29 Neuro: Orientation: is normal, appropriate for stated age, Mentation: is normal, appropriate for stated age, Memory: is normal, appropriate for stated age, no acute changes, Cranial nerves: grossly normal, is grossly normal based on the patient's age, no acute changes, Cerebellar function: is grossly normal, is grossly normal based on the patient's age, Motor: is normal, is grossly normal based on the patient's age, no acute changes, moves all fours, strength is normal, Sensation: is normal, no obvious gross deficits, appropriate no acute changes, Gait: not tested. Deep tendon reflexes are 2+ (normal) in the bilateral brachioradialis, bicep, tricep and patellar and Achilles tendons, Babinski testing is normal, seizure activity, is not displayed by the patient. Vital Signs: 13:21 BP 133 / 66; Pulse 64; Resp 23; Temp 98.4(O); Pulse Ox 100% on R/A; Weight 81.65 kg; jl7 Height 5 ft. 0 in. (152.40 cm); Pain 7/10; 13:36 BP 127 / 79 Supine; Pulse 75; jl7 13:36 BP 132 / 96 Standing; Pulse 75; jl7 15:00 BP 117 / 87; Pulse 64; Resp 19 S; Pulse Ox 100% on R/A; jg9 16:00 BP 108 / 70; Pulse 61; Resp 14 S; Pulse Ox 100% on R/A; jg9 13:21 Body Mass Index 35.15 (81.65 kg, 152.40 cm) jl7 NIH Stroke Scale Scores: 15:29 NIHSS Score: [address] [facility] [place] Coma Score: 16:30 Eye Response: spontaneous(4). Verbal Response: oriented(5). Motor Response: obeys [facility] commands(6). Total: 15. MDM: 13:32 Patient medically screened. [facility] 16:30 Antibiotic administration: The patient is discharged and will get outpatient [facility] antibiotics, Zithromax. Differential diagnosis: Anemia Anxiety Reaction asthma, Bronchitis cerebral vascular accident, viral Infection, bacterial infection, URI, bronchitis, pneumonia hyponatremia, neoplasm, tension headache, Myocardial Infarction pneumonia, Pneumothorax pulmonary edema, Pulmonary Embolism Sepsis. The patient's [place] Deep Vein Thrombosis Score was calculated as follows: Total Score: 0-2 Pts- Low Risk. The patient's pulmonary embolism risk score was calculated as follows: Total Score: 0-2 points. This patient was found to be at low risk for a pulmonary embolism by using the Well's assessment criteria. Immunization status:. Data reviewed: vital signs, nurses notes, EMS record, lab test result(s), EKG, radiologic studies, CT scan, plain films. Data interpreted: food product inspector: rate is 64 beats/min, rhythm is regular, Pulse oximetry: on room air is 100 %. Test interpretation: by ED physician or midlevel provider: ECG, plain radiologic studies. Counseling: I had a detailed discussion with the patient and/or guardian regarding: the historical points, exam findings, and any diagnostic results supporting the discharge/admit diagnosis, lab results, radiology results, the need for outpatient follow up, for definitive care, a family practitioner, a rotary surface grinder. 11/03 13:31 Order name: Basic Metabolic Panel [facility] 11/03 13:31 Order name: CBC with Diff; Complete Time: 15:[address] [facility] 11/03 13:31 Order name: LFT's [facility] 11/03 13:31 Order name: Magnesium [facility] 11/03 13:31 Order name: NT PRO-BNP [facility] 11/03 13:31 Order name: PT-INR; Complete Time: 15:[address] [facility] 11/03 13:31 Order name: Troponin (emerg Dept Use Only); Complete Time: 15:[address] [facility] 11/03 13:31 Order name: Ferritin; Complete Time: 15:[address] [facility] 11/03 13:31 Order name: CRP; Complete Time: 15:[address] [facility] 11/03 13:31 Order name: Urine Culture [facility] 11/03 13:32 Order name: Basic Metabolic Panel; Complete Time: 15:41 EDMT 11/03 13:32 Order name: Liver (Hepatic) Function; Complete Time: 15:41 EDMT 11/03 13:32 Order name: Magnesium; Complete Time: 15:41 EDMT 11/03 13:32 Order name: NT PRO-BNP; Complete Time: 15:41 EDMT 11/03 13:31 Order name: XRAY Chest (1 view) [facility] 11/03 13:31 Order name: EKG; Complete Time: 13:[address] [facility] 11/03 13:31 Order name: Cardiac monitoring; Complete Time: 15:[address] [facility] 11/03 13:31 Order name: EKG - Nurse/Tech; Complete Time: 15:[address] [facility] 11/03 13:31 Order name: CT Head Brain wo Cont; Complete Time: 16:[address] [facility] 11/03 13:31 Order name: CT Chest For PE Angio [facility] 11/03 14:59 Order name: Urine Dipstick-Ancillary; Complete Time: 15:03 EDMT 11/03 16:16 Order name: Urine --Ancillary (enter results) [facility] 11/03 13:31 Order name: IV Saline Lock; Complete Time: 15:[address] [facility] 11/03 13:31 Order name: Labs collected and sent; Complete Time: 15:[address] [facility] 11/03 13:31 Order name: O2 Sat Monitoring; Complete Time: 15:[address] [facility] 11/03 13:31 Order name: Urine Dipstick-Ancillary (obtain specimen); Complete Time: 15:[address] [facility] 11/03 13:32 Order name: Urine Test (obtain specimen); Complete Time: 15:[address] [facility] Administered Medications: 16:47 Discontinued: NS 0.9% 1000 ml IV at 125 ml/hr continuous j9 15:06 Drug: NS 0.9% 500 ml Route: IV; Rate: bolus; Site: right antecubital; jg9 16:00 Follow up: IV Status: Completed infusion; IV Intake: 500ml jg9 15:28 Drug: Tylenol 1000 mg Route: PO; jg9 16:15 Follow up: Response: No adverse reaction jg9 15:29 CANCELLED (Duplicate Order): NS 0.9% 500 ml IV at bolus once jg9 16:15 Drug: NS 0.9% 1000 ml Route: IV; Rate: 125 ml/hr; Site: right antecubital; jg9 16:49 Follow up: IV Status: Order to discontinue infusion; IV Intake: 150ml jg9 16:15 Drug: Pepcid (famotidine) 40 mg Route: PO; jg9 16:46 Follow up: Response: No adverse reaction jg9 16:15 Drug: Zithromax (azithromycin) 500 mg Route: PO; jg9 16:46 Follow up: Response: No adverse reaction jg9 16:15 Drug: Aspirin Chewable Tablet 324 mg Route: PO; jg9 16:46 Follow up: Response: No adverse reaction jg9 16:27 Drug: foLIC Acid 1 mg Route: IVPB; Site: right antecubital; jg9 16:46 Follow up: Response: No adverse reaction jg9 Point of Care Testing: Urine : 14:57 hCG Reading: Negative; Control Reading: Positive; jg9 14:57 Exp: 03/04/2023; Lot #: [id number]; jg9 Disposition Summary: 11/03/21 16:32 Discharge Ordered Location: Home joselito Problem: new joselito Symptoms: have improved joselito Condition: Stable joselito Diagnosis - Coronavirus infection, unspecified joselito - Acute upper respiratory infection, unspecified joselito - Fever, unspecified joselito - Bipolar disorder, current episode mixed, mild joselito Followup: joselito - With: Private Physician - When: 2 - 3 days - Reason: Recheck today's complaints, Continuance of care, Re-evaluation by your physician Followup: joselito - With: - When: 2 - 3 days - Reason: Recheck today's complaints, Re-evaluation by your physician Discharge Instructions: - Discharge Summary Sheet joselito - Upper Respiratory Infection, Adult joselito - Cool Mist Vaporizer joselito - Upper Respiratory Infection, Adult, [id number] joselito - Aspirin and Your Heart joselito - Cough, Adult joselito - COVID-19 joselito - COVID-19 Frequently Asked Questions [facility] - 10 Things You Can Do to Manage Your COVID-19 Symptoms at Home - [facility] joselito - COVID-19: Quarantine vs. Isolation - [facility] joselito Forms: - Medication Reconciliation Form joselito - Thank You Letter joselito - Antibiotic Education joselito - Prescription Opioid Use [facility] Prescriptions: - albuterol sulfate 90 mcg/actuation Inhalation HFA aerosol inhaler - inhale 2 puff by INHALATION route every 4-6 hours; 1 Pump; Refills: 0, Product joselito Selection Permitted - ivermectin 3 mg Oral tablet - take 5 tablet by ORAL route once daily 15 mg po daily on days 1, 3 and 5; 15 joselito tablet; Refills: 0, Product Selection Permitted - Pepcid 20 mg Oral Tablet - take 1 tablet by ORAL route every 12 hours for 30 days; 60 tablet; Refills: 0, [facility] Product Selection Permitted - Singulair 10 mg Oral Tablet - take 1 tablet by ORAL route At bedtime; 30 tablet; Refills: 0, Product joselito Selection Permitted - Zithromax 500 mg Oral Tablet - take 1 tablet by ORAL route once daily for 5 days; 5 tablet; Refills: 0, [facility] Product Selection Permitted - Folic Acid 1 mg Oral Tablet - take 1 tablet by ORAL route once daily; 30 tablet; Refills: 0, Product joselito Selection Permitted NIH Stroke Scale - NIH Stroke Score Date: 11/03/2021 Time: 15:29 Total Score = 0 1a. Level of Consciousness (LOC) - 0(Alert) 1b. Level of Consciousness (LOC) (Month \T\ Age) - 0(Both) 1c. LOC Commands (Open \T\ Closes Eyes/Upholstery Covers Inspector) - 0(Both) 2. Best Gaze (Lateral Gaze Paresis) - 0(Normal) 3. Visual Field Loss - 0(No visual loss) 4. Facial Palsy - 0(Normal) 5a. Left Arm: Motor (10-second hold) - 0(No drift) 5b. Right Arm: Motor (10-second hold) - 0(No drift) 6a. Left Leg: Motor (5-second hold - always test supine) - 0(No drift) 6b. Right Leg: Motor (5-second hold - always test supine) - 0(No drift) 7. Limb Ataxia (finger/nose \T\ heel/mcghee - test with eyes open) - 0(Absent) 8. Sensory Loss (pinprick arms/legs/face) - 0(Normal) 9. Best Language: Aphasia (description/naming/reading) - 0(No aphasia) 10. Dysarthria (speech clarity - read or repeat words) - 0(Normal) 11. Extinction and Inattention (visual/tactile/auditory/spatial/personal) - 0(No abnormality) Initials: [facility] Signatures: Dispatcher [employer] Minor Ortega MD MD cha Leal, Jahala RN RN jl7 Kimmy Khan jg9 Corrections: (The following items were deleted from the chart) 15:29 15:24 NS 0.9% 500 ml IV at bolus once ordered. joselito jg9
[2021-11-03 16:36] LABS: Urine Specific Gravity/Preg 1.025 (1.005-1.030)
[2021-11-03 16:54] VITALS: TEMP 98.4; O2SAT 100
[2021-11-03 16:58] VITALS: BP 108/70
== END 2021-11-03 16:49 | disposition home or self-care (01) ==
LOC: ER 13:06
DX: U07.1 COVID-19 (principal); J06.9 Acute upper respiratory infection, unspecified; F31.61 Bipolar disorder, current episode mixed, mild
CPT/HCPCS: 36415; 70450; 71045; 71275; 80048; 80076; 81003; 81025; 82728; 83735; 83880; 84484; 85025; 85610; 86140; 87077; 87086; 87088; 87186; 93005; 96361; 96374; 99284; J7030; J7040; Q9967